=== PATIENT | male | born 1955 | race Caucasian/White ===

== ENCOUNTER 2018-01-01 14:22 | Inpatient (IN) ==
[2018-01-01] MEDS ORDERED: Temazepam 15 MG Capsule PO PRN (21:24)
[2018-01-01] MEDS: Sod Chloride 0.9% Inj 1,000 ML IV.CONT SCH (22:24)
[2018-01-01] MEDS: Thiamine Inj 500 MG in Sodium Chlor 0.9% Inj 250 ML IV.SIG SCH (22:24)
[2018-01-02] MEDS: Thiamine Inj 500 MG in Sodium Chlor 0.9% Inj 250 ML IV.SIG SCH ×3 (05:15→21:39)
[2018-01-02] MEDS: Acetaminophen 325 MG Tablet PO PRN ×2 (05:51→12:40)
[2018-01-02 06:17] LABS: Baso % (Auto) 0.1 % (0.0-2.0); Eos # (Auto) 0.2 th/mm3 (0.0-0.4); Eos % (Auto) 2.2 % (0.0-4.0); Hematocrit 40.4 % (39.0-51.0); Hemoglobin 13.9 gm/dL (13.0-17.0); Lymph # (Auto) 0.5 th/mm3 (1.0-4.8); Mean Corpuscular HGB Conc 34.4 % (32.0-36.0); Mean Corpuscular Hemoglobin 32.8 pg (27.0-34.0); Mean Corpuscular Volume 95.4 fL (80.0-100.0); Mean Platelet Volume 7.9 fL (7.0-11.0); Mono # (Auto) 0.4 th/mm3 (0.0-0.9); Neut # (Auto) 8.3 th/mm3 (1.8-7.7); Neut % (Auto) 88.7 % (16.0-70.0); Platelet Count 206 th/mm3 (150-450); Red Blood Count 4.23 mil/mm3 (4.50-5.90); Red Cell Distribution Width 11.7 % (11.6-17.2); White Blood Count 9.4 th/mm3 (4.0-11.0)
[2018-01-02 06:24] LABS: Chloride 109 meq/L (98-107); Potassium 3.5 meq/L (3.5-5.1); Sodium 141 meq/L (136-145)
[2018-01-02 06:28] LABS: Albumin 2.8 g/dL (3.4-5.0); Anion Gap 8 meq/L (5-15); Blood Urea Nitrogen 13 mg/dL (7-18); Carbon Dioxide 24.4 meq/L (21.0-32.0); Glucose,Random 119 mg/dL (74-106)
[2018-01-02 06:31] LABS: Alanine Aminotransferase 169 U/L (12-78); Aspartate Aminotransferase 121 U/L (15-37); Glomerular Filtration Rate 61 mL/min (>89)
[2018-01-02 06:32] LABS: Total Protein 6.9 g/dL (6.4-8.2)
[2018-01-02 06:33] LABS: Alkaline Phosphatase 173 U/L (45-117)
[2018-01-02] MEDS: Sod Chloride 0.9% Inj 1,000 ML IV.CONT SCH ×2 (08:13→18:37)
--- NOTE | 2018-01-02 11:04 | P.HP ---
History of Present Illness Service: Medicine Primary Care Physician: UNKNOWN Chief Complaint: dysuria, fever History of Present Illness: 62 y/o male presents to [place] [facility] with complaints of fevers up to 103 for 3 days. He states he had been poorly for the last week. Tuesday he started developing fevers of 103. He took several ibuprofen and aleve over the next several days with no improvment in his fevers. His only other complaint is burning on urination.No penile discharge. He has also had a frontal headache. No blurry vision, no neck pain. Today he has some nasal congestion, no sore throat. [employer]prox 2 weeks ago he cut his left hand against a fence and was placed on bactrim which he finished 2 days ago. No abdominal pain or diarrhea. He feels that he hasnt moved his bowels as regularly since the bactrim. No skin rash. In [place] his white count was 13.7 and his urine had bacteria and was postive for nitrites. His lfts were slightly elevated (ast 191, alt 177, alk phos 156) and ruq ultrasound was done that was negative for any acute process. - Diagnosis (1) UTI (urinary tract infection) (2) Sepsis (3) Elevated LFTs Inpatient Certification: I certify that the inpatient services were ordered in accordance with Medicare regulations governing the order. This includes certification that hospital inpatient services are reasonable and necessary and in the case of services not specified as inpatient-only under 42 CFR 419.22(n), that they are appropriately provided as inpatient services in accordance to with the 2-midnight benchmark under 43 CFR 412.3(e) Estimated Total Length of Stay (Days): 2 Plans for Post Hospital Care: Home Review of Systems All other systems reviewed negative except as [facility] - History History Provided By: Patient, Significant Other - Medical History Medical History: Medical History (Last Updated 01/02/18 @ 11:07 by Beatriz Wood MD) UTI (urinary tract infection) (Acute) Sepsis (Acute) Elevated LFTs (Acute) Gout Hypertension - Surgical History Surgical History: Surgical History (Last Reviewed 01/02/18 @ 10:54 by Beatriz Wood MD) No history of previous surgery - Tobacco History Second Hand Smoke Exposure: No Tobacco Use In Past 30 Days: No Smoking Status: Former smoker - Alcohol History How Often Do You Have a Drink Containing Alcohol: 4 or more times a week (4-6 beers a day,stopped 5 days ago) - Substance Use History Substance History: No History of Abuse - Immunization History Tetanus Immunization: >5 Years Hx Influenza Vaccine This Season: No Medications and Allergies Active Medications: Active Medications Acetaminophen (Tylenol) 650 mg PO Q4H PRN PRN Reason: Temp > 100.4 Last Admin: 01/02/18 05:51 Dose: 650 mg Sodium Chloride (Ns Inj) 1,000 mls @ 100 mls/hr IV.CONT .Q10H SUNITHA Last Admin: 01/02/18 08:13 Dose: 100 mls/hr Thiamine HCl 500 mg/ Sodium (Chloride) 255 mls @ 62.5 mls/hr IV.SIG Q8H SUNITHA Stop: 01/03/18 21:59 Last Admin: 01/02/18 05:15 Dose: 62.5 mls/hr Thiamine HCl 500 mg/ Sodium (Chloride) 505 mls @ 21 mls/hr IV.SIG Q24H SUNITHA Stop: 01/08/18 20:59 Piperacillin/Tazobactam/Dextrose (Zosyn 4.5 Gm Premix) 4.5 gm in 100 mls @ 200 mls/hr IV.SIG Q6H SUNITHA Ondansetron HCl (Zofran Inj) 4 mg IV.PUSH Q6H PRN PRN Reason: NAUSEA OR VOMITING Temazepam (Restoril) 15 mg PO HS PRN PRN Reason: INSOMNIA Allergies Allergy/AdvReac Type Severity Reaction Status Date / Time No Known Allergies Allergy Verified 01/01/18 14:24 Exam Vital signs: Vital Signs 01/01/18 20:15 01/02/18 00:00 01/02/18 04:00 Temperature 98.1 F 100.8 F H 99.1 F Pulse Rate 84 95 H 88 Respiratory Rate 20 20 20 Blood Pressure 134/81 123/72 117/65 Pulse Oximetry 97 96 97 01/02/18 08:00 Temperature 97.3 F L Pulse Rate 80 Respiratory Rate 18 Blood Pressure 117/64 Pulse Oximetry 95 Intake & Output 01/01/18 01/02/18 01/02/18 18:59 06:59 18:59 Intake Total 975 / 975 1000 / 1000 Balance 975 / 975 1000 / 1000 Weight 92.1 kg Intake: IV 255 / 255 1000 / 1000 NS Inj 1,000 ML @ 100 mls/hr IV 1000 / 1000 .CONT .Q10H SUNITHA Rx#:[id number] Thiamine Inj 500 MG In NS Inj 255 / 255 250 ML @ 62.5 mls/hr IV.SIG Q8H SUNITHA Rx#:[id number] Oral 720 / 720 Other: # Voids 1 Weight On Admission 91.6 kg - Constitutional no acute distress - Routine HEENT Exam Head: Present: normocephalic Eye: Present: EOMI ENT: Present: mucous membranes moist - Routine Neck Exam Present: supple - Routine Respiratory Exam Present: CTA bilaterally - Routine Cardiovascular Exam Present: RRR - Routine Abdominal Exam Present: soft, normoactive bowel sounds - Routine Extremities Exam Present: full ROM - Routine Skin Exam Present: wounds Comments: healing wound dorsum of left hand with eschar, some erythema, nontender not warm , tattoos - Routine Neurological Exam Present: alert, oriented X3 Results - Labs CBC & Chem 7: 01/02/18 05:50 01/02/18 05:50 Labs: Laboratory Results - last 24 hr 01/02/18 01/02/18 05:50 05:50 CBC w Diff Auto diff final WBC 9.4 RBC 4.23 L Hgb 13.9 Hct 40.4 MCV 95.4 MCH 32.8 MCHC 34.4 RDW 11.7 Plt Count 206 MPV 7.9 Neut % (Auto) 88.7 H Lymph % (Auto) 5.0 L [place] % (Auto) 4.0 Eos % (Auto) 2.2 Baso % (Auto) 0.1 Neut # (Auto) 8.3 H Lymph # (Auto) 0.5 L [place] # (Auto) 0.4 Eos # (Auto) 0.2 Baso # (Auto) 0.0 WBC Differential . Differential Comment . Sodium 141 Potassium 3.5 Chloride 109 H Carbon Dioxide 24.4 Anion Gap 8 BUN 13 Creatinine 1.20 Estimated GFR 61 L Random Glucose 119 H Calcium 8.0 L D Total Bilirubin 2.3 H Direct Bilirubin 1.7 H Indirect Bilirubin 0.6 AST 121 H ALT 169 H Alkaline Phosphatase 173 H Total Protein 6.9 D Albumin 2.8 L D - Imaging RUQ ultrasound done in [place] read as echogenic liver consistent with hepatic steatosis vs medical liver disease Caprini VTE Risk Assessment Caprini VTE Risk Assessment: Moderate/High Risk (score >= 2) Caprini Risk Assessment Model: Point Value = 1 Point Value = 2 Point Value = 3 Point Value = 5 Age 41-60 Minor surgery BMI > 25 kg/m2 Swollen legs Varicose veins or History of unexplained or recurrent spontaneous Oral contraceptives or hormone replacement Sepsis (< 1 month) Serious lung disease, including pneumonia (< 1 month) Abnormal pulmonary function Acute myocardial infarction Congestive heart failure (< 1 month) History of inflammatory bowel disease Medical patient at bed rest Age 61-74 Arthroscopic surgery Major open surgery (> 45 min) Laparoscopic surgery (> 45 min) Malignancy Confined to bed (> 72 hours) Immobilizing plaster cast Central venous access Age >= 75 History of VTE Family history of VTE Factor V Leiden Prothrombin [id number] Lupus anticoagulant Anticardiolipin antibodies Elevated serum homocysteine Heparin-induced thrombocytopenia Other congenital or acquired thrombophilia Stroke (< 1 month) Elective arthroplasty Hip, pelvis, or leg fracture Acute spinal cord injury (< 1 month) Prophylaxis Regimen: Total Risk Factor Score Risk Level Prophylaxis Regimen 0-1 Low Early ambulation 2 Moderate Order ONE of the following: *Sequential Compression Device (SCD) *Heparin 5000 units SQ BID 3-4 Higher Order ONE of the following medications: *Heparin 5000 units SQ TID *Enoxaparin/Lovenox 40 mg SQ daily (WT < 150 kg, CrCl > 30 mL/min) *Enoxaparin/Lovenox 30 mg SQ daily (WT < 150 kg, CrCl > 10-29 mL/min) *Enoxaparin/Lovenox 30 mg SQ BID (WT < 150 kg, CrCl > 30 mL/min) AND/OR *Sequential Compression Device (SCD) 5 or more Highest Order ONE of the following medications: *Heparin 5000 units SQ TID (Preferred with Epidurals) *Enoxaparin/Lovenox 40 mg SQ daily (WT < 150 kg, CrCl > 30 mL/min) *Enoxaparin/Lovenox 30 mg SQ daily (WT < 150 kg, CrCl > 10-29 mL/min) *Enoxaparin/Lovenox 30 mg SQ BID (WT < 150 kg, CrCl > 30 mL/min) AND *Sequential Compression Device (SCD) Assessment and Plan - Assessment (1) UTI (urinary tract infection) Code(s): N39.0 - Urinary tract infection, site not specified Status: Acute Onset Date: ~01/01/18 Plan: Patient has developed rather significant uti while on bactrim, On zosyn currently, follow urine cultures and blood cultures from [place] (2) Sepsis Code(s): A41.9 - Sepsis, unspecified organism Status: Acute Plan: lactic acid was 2.4 in [place] ER, along with fever, elevated white count cont anitbiotics, fluids and supportive care (3) Elevated LFTs Code(s): R94.5 - Abnormal results of liver function studies Status: Acute Plan: Ultrasound was negative for gallstones, may be multifactorial, recent alcohol use and what appears to be incresed nsaid use over the weekend, further evaluation pending trend. - Plan Discussed Condition With: patient and (1) UTI (urinary tract infection) Qualifiers: Encounter type: initial encounter (2) Sepsis Qualifiers: Sepsis type: sepsis due to unspecified organism Qualified Code(s): A41.9 - Sepsis, unspecified organism
[2018-01-02] MEDS: Piperacil/Tazo 4.5 GM Premix 4.5 GM/100 ML BAG IV.SIG SCH ×3 (11:18→23:16)
[2018-01-02] MEDS ORDERED: Ketorolac Inj 30 MG/ML (IVP) Vial IV.PUSH SCH (22:45)
[2018-01-03] MEDS: Piperacil/Tazo 4.5 GM Premix 4.5 GM/100 ML BAG IV.SIG SCH ×4 (06:19→23:03)
[2018-01-03] MEDS: Thiamine Inj 500 MG in Sodium Chlor 0.9% Inj 250 ML IV.SIG SCH ×2 (06:37→14:12)
[2018-01-03 06:46] LABS: Baso % (Auto) 0.2 % (0.0-2.0); Eos # (Auto) 0.2 th/mm3 (0.0-0.4); Eos % (Auto) 2.2 % (0.0-4.0); Hematocrit 37.8 % (39.0-51.0); Hemoglobin 13.2 gm/dL (13.0-17.0); Lymph # (Auto) 0.5 th/mm3 (1.0-4.8); Lymph % (Auto) 4.8 % (9.0-44.0); Mean Corpuscular Volume 94.2 fL (80.0-100.0); Mean Platelet Volume 7.6 fL (7.0-11.0); Mono # (Auto) 0.5 th/mm3 (0.0-0.9); Neut # (Auto) 9.1 th/mm3 (1.8-7.7); Neut % (Auto) 87.8 % (16.0-70.0); Platelet Count 222 th/mm3 (150-450); Red Blood Count 4.01 mil/mm3 (4.50-5.90); Red Cell Distribution Width 12.4 % (11.6-17.2); White Blood Count 10.3 th/mm3 (4.0-11.0)
[2018-01-03 06:51] LABS: Chloride 111 meq/L (98-107); Potassium 3.7 meq/L (3.5-5.1); Sodium 143 meq/L (136-145)
[2018-01-03 06:56] LABS: Albumin 2.4 g/dL (3.4-5.0); Anion Gap 11 meq/L (5-15); Blood Urea Nitrogen 11 mg/dL (7-18); Calcium 8.1 mg/dL (8.5-10.1); Carbon Dioxide 21.1 meq/L (21.0-32.0); Glucose,Random 95 mg/dL (74-106)
[2018-01-03 06:59] LABS: Alanine Aminotransferase 115 U/L (12-78); Aspartate Aminotransferase 64 U/L (15-37); Glomerular Filtration Rate 68 mL/min (>89)
[2018-01-03 07:01] LABS: Total Protein 6.7 g/dL (6.4-8.2)
[2018-01-03 07:02] LABS: Alkaline Phosphatase 272 U/L (45-117)
[2018-01-03] MEDS: Sod Chloride 0.9% Inj 1,000 ML IV.CONT SCH ×3 (08:23→18:01)
[2018-01-03 12:20] LABS: Hepatitis A IgM Antibody Nonreactive (Nonreactive); Hepatitits B Surface Antigen Nonreactive (Nonreactive)
--- NOTE | 2018-01-03 13:12 | P.PN ---
Subjective Interval history: head ache yesterday improved with low dose toradol and benedryl, eyes are itching and red, uses red eye solution at home every day, nasal congestion now with nonproductive cough, eating but decreased appetite, had bm this am, regular , generalized body ache, worried about left hand. states they doctored it at home themselves for a while before seeking medical attention and was quite swollen .Completed 10 days of bactrim 3 days ago. Physical Exam Vital signs: Vital Signs 01/02/18 15:43 01/02/18 20:00 01/03/18 00:00 Temperature 100.3 F H 100 F H 99.3 F Pulse Rate 89 89 86 Respiratory Rate 18 19 18 Blood Pressure 122/60 131/71 123/66 Pulse Oximetry 97 97 96 01/03/18 04:00 01/03/18 08:00 01/03/18 12:00 Temperature 99.2 F 97.8 F 99.9 F H Pulse Rate 86 90 Respiratory Rate 17 20 Blood Pressure 123/77 160/80 H Pulse Oximetry 98 95 Intake & Output 01/02/18 01/03/18 01/03/18 18:59 06:59 18:59 Intake Total 3395 / 3395 2090 / 2090 815 / 815 Output Total 500 / 500 400 / 400 Balance 3395 / 3395 1590 / 1590 415 / 415 Weight 94 kg Intake: IV 2455 / 2455 1610 / 1610 455 / 455 NS Inj 1,000 ML @ 100 mls/hr IV 2000 / 2000 1000 / 1000 .CONT .Q10H SUNITHA Rx#:[id number] Zosyn 4.5 GM Premix 4.5 gm In 100 / 100 200 / 200 200 / 200 100 ml @ 200 mls/hr IV.SIG Q6H SUNITHA Rx#:[id number] Thiamine Inj 500 MG In NS Inj 355 / 355 410 / 410 255 / 255 250 ML @ 62.5 mls/hr IV.SIG Q8H SUNITHA Rx#:[id number] Oral 940 / 940 480 / 480 360 / 360 Output: Urine 500 / 500 400 / 400 Other: # Voids 2 Date of Last Bowel Movement 01/03/18 # Bowel Movements 0 - Constitutional Comments: sitting in chair , ill appearing, uncomfortable - Routine HEENT Exam Head: Present: normocephalic Eye: Present: conjunctival icterus, scleral injection - Routine Neck Exam Present: supple - Routine Respiratory Exam Present: CTA bilaterally - Routine Cardiovascular Exam Present: RRR - Routine Abdominal Exam Present: soft, normoactive bowel sounds - Routine Skin Exam Present: wounds Comments: dorsum of left wrist eschar, appears more swollen today, some scar tissue formation, tender but not hot - Routine Neurological Exam Present: alert - Routine Psychiatric Exam Present: normal affect Results - Labs CBC & Chem 7: 01/03/18 06:25 01/03/18 06:25 Laboratory Results - last 24 hr 01/03/18 01/03/18 01/03/18 06:25 06:25 06:25 CBC w Diff Auto diff final WBC 10.3 RBC 4.01 L Hgb 13.2 Hct 37.8 L MCV 94.2 MCH 33.0 MCHC 35.0 RDW 12.4 Plt Count 222 MPV 7.6 Neut % (Auto) 87.8 H Lymph % (Auto) 4.8 L [place] % (Auto) 5.0 Eos % (Auto) 2.2 Baso % (Auto) 0.2 Neut # (Auto) 9.1 H Lymph # (Auto) 0.5 L [place] # (Auto) 0.5 Eos # (Auto) 0.2 Baso # (Auto) 0.0 WBC Differential . Differential Comment . Sodium 143 Potassium 3.7 Chloride 111 H Carbon Dioxide 21.1 Anion Gap 11 BUN 11 Creatinine 1.10 Estimated GFR 68 L Random Glucose 95 Calcium 8.1 L Total Bilirubin 3.3 H AST 64 H ALT 115 H Alkaline Phosphatase 272 H Total Protein 6.7 Albumin 2.4 L Hepatitis A IgM Ab Nonreactive Hep Bs Antigen Nonreactive Hep B Core IgM Ab Nonreactive Hep C IgG Ab Nonreactive Microbiology 01/01/18 23:25 Blood - Peripheral Aerobic Blood Culture - Preliminary No growth in 2 days 01/01/18 23:25 Blood - Peripheral Anaerobic Blood Culture - Preliminary No growth in 2 days 01/01/18 23:30 Blood - Peripheral Aerobic Blood Culture - Preliminary No growth in 2 days 01/01/18 23:30 Blood - Peripheral Anaerobic Blood Culture - Preliminary No growth in 2 days Assessment and Plan - Assessment (1) UTI (urinary tract infection) Code(s): A41.9 - Sepsis, unspecified organism Status: Acute Plan: lactic acid was 2.4 in [place] [facility], along with fever, elevated white count cont anitbiotics, fluids and supportive care, no clear source at this point (2) Elevated LFTs Code(s): R94.5 - Abnormal results of liver function studies Status: Acute Plan: Ultrasound was negative for gallstones, may be multifactorial, recent alcohol use and what appears to be increased nsaid use over the weekend, alk phos and bilirubin increasing ast, alt decreasing, hepatitis studies ordered , (3) UTI (urinary tract infection) Code(s): A41.9 - Sepsis, unspecified organism Status: Acute Plan: lactic acid was 2.4 in [place] [facility], along with fever, elevated white count cont anitbiotics, fluids and supportive care, no clear source at this point - Plan Discussed Condition With: patient and (1) UTI (urinary tract infection) Qualifiers: Sepsis type: sepsis due to unspecified organism Qualified Code(s): A41.9 - Sepsis, unspecified organism (3) UTI (urinary tract infection) Qualifiers: Sepsis type: sepsis due to unspecified organism Qualified Code(s): A41.9 - Sepsis, unspecified organism
[2018-01-03] MEDS: Acetaminophen 325 MG Tablet PO PRN (14:38)
--- NOTE | 2018-01-03 15:21 | XR ---
EXAM DATE: 01/03/2018 3:10 PM EDT AGE/SEX: 62 years / Male INDICATIONS: . Fever. CLINICAL DATA: This is the patient's initial encounter. Patient reports that signs and symptoms have been present for 1 day and indicates a pain score of 6/10. MEDICAL/SURGICAL HISTORY: Hypertension. UTI. Gout. None. COMPARISON: No prior exams available for comparison. FINDINGS: Frontal and lateral views of the chest demonstrate a normal-sized cardiac silhouette. There are abnor mal lower lung zone interstitial opacities bilaterally. No pleural effusion or pneumothorax is identi fied. The bones and soft tissues demonstrate no acute finding. CONCLUSION: Abnormal lower lung zone interstitial opacities bilaterally. No pleural effusion is present. Pulmonar y edema could give this appearance. Given the history of fever infection is also a consideration. Electronically signed by: Lico Ovalle MD 01/03/2018 3:19 PM EDT
--- NOTE | 2018-01-03 15:22 | XR ---
EXAM DATE: 01/03/2018 3:12 PM EDT AGE/SEX: 62 years / Male INDICATIONS: Left posterior hand wound. CLINICAL DATA: This is the patient's initial encounter. Patient reports that signs and symptoms have been present for 1 week and indicates a pain score of 7/10. MEDICAL/SURGICAL HISTORY: Hypertension. Gout. UTI. None. COMPARISON: No prior exams available for comparison. FINDINGS: 3 views of the left hand demonstrate no fracture or dislocation. There is joint space narrowing and o steophytes at the thumb metacarpophalangeal joint. Small subchondral cyst is present in the distal po le of the scaphoid. No osseous erosions are visualized. There is mild posterior hand soft tissue swel ling. No radiopaque foreign body is identified. CONCLUSION: Mild posterior hand soft tissue swelling. No radiopaque foreign body is identified and no acute osseo us abnormality is seen. Electronically signed by: Lico Ovalle MD 01/03/2018 3:21 PM EDT
--- NOTE | 2018-01-03 16:17 | P.CONGI ---
History of Present Illness Consult date: 01/03/18 Consult reason: Jaundice Chief complaint: UTI, sepsis History of Present Illness: This is 62 y/o male presents with fevers up to 103 for 3 days. He took several ibuprofen and Aleve with no improvement. He has been feeling poorly for few days. GI consulted for jaundice and elevated LFTs. Pt was seen initially at [place] ED. US done in [place] showed echogenic liver consistent with hepatic steatosis vs medical liver disease. LFTs on admission AST 191, ALT 177, alk phos 156, bili 2.3, today bili and alk phos seem to rise but rest of LFTs trending down. Pt denies previous hx of liver dz or family hx of liver dz. Pt was placed on Bactrim which he finished 2 days ago for cut on the hand. He admits to alcohol intake 2-6 a day. His only other complaint is burning on urination and fever. He also endorses dark urine. He denies nausea, vomiting, abd pain, melena or hematochezia. He has been constipated but had BM today. <Gregoria Polk - Last Filed: 01/03/18 16:02> Review of Systems All other systems reviewed negative except as stated in HPI <Gregoria Polk - Last Filed: 01/03/18 16:02> PMFSH - History History Provided By: Patient, Significant Other - Medical History Medical History: Medical History (Last Updated 01/02/18 @ 11:07 by Beatriz Wood MD) UTI (urinary tract infection) (Acute) Onset Date: ~01/01/18 Elevated LFTs (Acute) Onset Date: ~01/01/18 Gout Hypertension - Surgical History Surgical History: Surgical History (Last Reviewed 01/02/18 @ 10:54 by Beatriz Wood MD) No history of previous surgery - Tobacco History Second Hand Smoke Exposure: No Tobacco Use In Past 30 Days: No Smoking Status: Former smoker - Alcohol History How Often Do You Have a Drink Containing Alcohol: 4 or more times a week (4-6 beers a day,stopped 5 days ago) - Substance Use History Substance History: No History of Abuse - Immunization History Tetanus Immunization: >5 Years Hx Influenza Vaccine This Season: No <Gregoria Polk - Last Filed: 01/03/18 16:02> - Medical History Medical History: Medical History (Last Updated 01/02/18 @ 11:07 by Beatriz Wood MD) UTI (urinary tract infection) (Acute) Onset Date: ~01/01/18 Elevated LFTs (Acute) Onset Date: ~01/01/18 Gout Hypertension - Surgical History Surgical History: Surgical History (Last Reviewed 01/02/18 @ 10:54 by Beatriz Wood MD) No history of previous surgery <Denis Collins - Last Filed: 01/03/18 17:10> Medications and Allergies Active Medications: Active Medications Acetaminophen (Tylenol) 650 mg PO Q4H PRN PRN Reason: Temp > 100.4 Last Admin: 01/03/18 14:38 Dose: 650 mg Al Hydroxide/Mg Hydroxide (Milk Of Magnmarycarmen Liq) 30 ml PO Q24H PRN PRN Reason: CONSTIPATION Last Admin: 01/03/18 08:40 Dose: 30 ml Sodium Chloride (Ns Inj) 1,000 mls @ 100 mls/hr IV.CONT .Q10H SUNITHA Last Admin: 01/03/18 13:56 Dose: Not Given Thiamine HCl 500 mg/ Sodium (Chloride) 255 mls @ 62.5 mls/hr IV.SIG Q8H SUNITHA Stop: 01/03/18 21:59 Last Admin: 01/03/18 14:12 Dose: 62.5 mls/hr Thiamine HCl 500 mg/ Sodium (Chloride) 505 mls @ 21 mls/hr IV.SIG Q24H SUNITHA Stop: 01/08/18 20:59 Piperacillin/Tazobactam/Dextrose (Zosyn 4.5 Gm Premix) 4.5 gm in 100 mls @ 200 mls/hr IV.SIG Q6H SUNITHA Last Infusion: 01/03/18 11:29 Dose: Infused Ondansetron HCl (Zofran Inj) 4 mg IV.PUSH Q6H PRN PRN Reason: NAUSEA OR VOMITING Temazepam (Restoril) 15 mg PO HS PRN PRN Reason: INSOMNIA <Gregoria Polk - Last Filed: 01/03/18 16:02> Active Medications: Active Medications Acetaminophen (Tylenol) 650 mg PO Q4H PRN PRN Reason: Temp > 100.4 Last Admin: 01/03/18 14:38 Dose: 650 mg Al Hydroxide/Mg Hydroxide (Milk Of Magnmarycarmen Liq) 30 ml PO Q24H PRN PRN Reason: CONSTIPATION Last Admin: 01/03/18 08:40 Dose: 30 ml Sodium Chloride (Ns Inj) 1,000 mls @ 100 mls/hr IV.CONT .Q10H SUNITHA Last Admin: 01/03/18 13:56 Dose: Not Given Thiamine HCl 500 mg/ Sodium (Chloride) 255 mls @ 62.5 mls/hr IV.SIG Q8H SUNITHA Stop: 01/03/18 21:59 Last Admin: 01/03/18 14:12 Dose: 62.5 mls/hr Thiamine HCl 500 mg/ Sodium (Chloride) 505 mls @ 21 mls/hr IV.SIG Q24H SUNITHA Stop: 01/08/18 20:59 Piperacillin/Tazobactam/Dextrose (Zosyn 4.5 Gm Premix) 4.5 gm in 100 mls @ 200 mls/hr IV.SIG Q6H SUNITHA Last Infusion: 01/03/18 11:29 Dose: Infused Ondansetron HCl (Zofran Inj) 4 mg IV.PUSH Q6H PRN PRN Reason: NAUSEA OR VOMITING Temazepam (Restoril) 15 mg PO HS PRN PRN Reason: INSOMNIA <Denis Collins - Last Filed: 01/03/18 17:10> Allergies Allergy/AdvReac Type Severity Reaction Status Date / Time No Known Allergies Allergy Verified 01/01/18 14:24 Exam Vital signs: Vital Signs 01/02/18 20:00 01/03/18 00:00 01/03/18 04:00 Temperature 100 F H 99.3 F 99.2 F Pulse Rate 89 86 Respiratory Rate 19 18 Blood Pressure 131/71 123/66 Pulse Oximetry 97 96 01/03/18 08:00 01/03/18 12:00 01/03/18 14:36 Temperature 97.8 F 99.9 F H 100.9 F H Pulse Rate 86 90 Respiratory Rate 17 20 Blood Pressure 123/77 160/80 H Pulse Oximetry 98 95 Intake & Output 01/02/18 01/03/18 01/03/18 18:59 06:59 18:59 Intake Total 3395 / 3395 2090 / 2090 815 / 815 Output Total 500 / 500 400 / 400 Balance 3395 / 3395 1590 / 1590 415 / 415 Weight 94 kg Intake: IV 2455 / 2455 1610 / 1610 455 / 455 NS Inj 1,000 ML @ 100 mls/hr IV 2000 / 2000 1000 / 1000 .CONT .Q10H SUNITHA Rx#:[id number] Zosyn 4.5 GM Premix 4.5 gm In 100 / 100 200 / 200 200 / 200 100 ml @ 200 mls/hr IV.SIG Q6H SUNITHA Rx#:[id number] Thiamine Inj 500 MG In NS Inj 355 / 355 410 / 410 255 / 255 250 ML @ 62.5 mls/hr IV.SIG Q8H SUNITHA Rx#:[id number] Oral 940 / 940 480 / 480 360 / 360 Output: Urine 500 / 500 400 / 400 Other: # Voids 2 Date of Last Bowel Movement 01/03/18 # Bowel Movements 0 - Constitutional no acute distress - Routine HEENT Exam Head: Present: normocephalic - Routine Neck Exam Present: supple - Routine Respiratory Exam Present: CTA bilaterally - Routine Cardiovascular Exam Present: RRR - Routine Abdominal Exam Present: soft, normoactive bowel sounds. Absent: tenderness - Routine Extremities Exam Absent: cyanosis, clubbing - Routine Skin Exam Present: intact, dry, jaundice - Routine Neurological Exam Present: alert, oriented X3 <Gregoria Polk - Last Filed: 01/03/18 16:02> Vital signs: Vital Signs 01/02/18 20:00 01/03/18 00:00 01/03/18 04:00 Temperature 100 F H 99.3 F 99.2 F Pulse Rate 89 86 Respiratory Rate 19 18 Blood Pressure 131/71 123/66 Pulse Oximetry 97 96 01/03/18 08:00 01/03/18 12:00 01/03/18 14:36 Temperature 97.8 F 99.9 F H 100.9 F H Pulse Rate 86 90 Respiratory Rate 17 20 Blood Pressure 123/77 160/80 H Pulse Oximetry 98 95 Intake & Output 01/02/18 01/03/18 01/03/18 18:59 06:59 18:59 Intake Total 3395 / 3395 2090 / 2090 815 / 815 Output Total 500 / 500 400 / 400 Balance 3395 / 3395 1590 / 1590 415 / 415 Weight 94 kg Intake: IV 2455 / 2455 1610 / 1610 455 / 455 NS Inj 1,000 ML @ 100 mls/hr IV 2000 / 2000 1000 / 1000 .CONT .Q10H SUNITHA Rx#:[id number] Zosyn 4.5 GM Premix 4.5 gm In 100 / 100 200 / 200 200 / 200 100 ml @ 200 mls/hr IV.SIG Q6H SUNITHA Rx#:[id number] Thiamine Inj 500 MG In NS Inj 355 / 355 410 / 410 255 / 255 250 ML @ 62.5 mls/hr IV.SIG Q8H SUNITHA Rx#:[id number] Oral 940 / 940 480 / 480 360 / 360 Output: Urine 500 / 500 400 / 400 Other: # Voids 2 Date of Last Bowel Movement 01/03/18 # Bowel Movements 0 <Denis Collins - Last Filed: 01/03/18 17:10> Results - Labs CBC & Chem 7: 01/03/18 06:25 01/03/18 06:25 Labs: Laboratory Results - last 24 hr 01/03/18 01/03/18 01/03/18 06:25 06:25 06:25 CBC w Diff Auto diff final WBC 10.3 RBC 4.01 L Hgb 13.2 Hct 37.8 L MCV 94.2 MCH 33.0 MCHC 35.0 RDW 12.4 Plt Count 222 MPV 7.6 Neut % (Auto) 87.8 H Lymph % (Auto) 4.8 L Saline % (Auto) 5.0 Eos % (Auto) 2.2 Baso % (Auto) 0.2 Neut # (Auto) 9.1 H Lymph # (Auto) 0.5 L Saline # (Auto) 0.5 Eos # (Auto) 0.2 Baso # (Auto) 0.0 WBC Differential . Differential Comment . Sodium 143 Potassium 3.7 Chloride 111 H Carbon Dioxide 21.1 Anion Gap 11 BUN 11 Creatinine 1.10 Estimated GFR 68 L Random Glucose 95 Calcium 8.1 L Total Bilirubin 3.3 H AST 64 H ALT 115 H Alkaline Phosphatase 272 H Total Protein 6.7 Albumin 2.4 L Hepatitis A IgM Ab Nonreactive Hep Bs Antigen Nonreactive Hep Bs Antibody Hep B Core IgM Ab Nonreactive Hep C IgG Ab Nonreactive 01/03/18 06:25 CBC w Diff WBC RBC Hgb Hct MCV MCH MCHC RDW Plt Count MPV Neut % (Auto) Lymph % (Auto) Saline % (Auto) Eos % (Auto) Baso % (Auto) Neut # (Auto) Lymph # (Auto) Saline # (Auto) Eos # (Auto) Baso # (Auto) WBC Differential Differential Comment Sodium Potassium Chloride Carbon Dioxide Anion Gap BUN Creatinine Estimated GFR Random Glucose Calcium Total Bilirubin AST ALT Alkaline Phosphatase Total Protein Albumin Hepatitis A IgM Ab Cancelled Hep Bs Antigen Cancelled Hep Bs Antibody Less than 3.1 Hep B Core IgM Ab Cancelled Hep C IgG Ab - Imaging Impressions Chest X-Ray 01/03/18 00:00 CONCLUSION: Abnormal lower lung zone interstitial opacities bilaterally. No pleural effusion is present. Pulmonary edema could give this appearance. Given the history of fever infection is also a consideration. Hand X-Ray 01/03/18 00:00 CONCLUSION: Mild posterior hand soft tissue swelling. No radiopaque foreign body is identified and no acute osseous abnormality is seen. <Gregoria Polk - Last Filed: 01/03/18 16:02> - Labs CBC & Chem 7: 01/03/18 06:25 01/03/18 06:25 Labs: Laboratory Results - last 24 hr 01/03/18 01/03/18 01/03/18 06:25 06:25 06:25 CBC w Diff Auto diff final WBC 10.3 RBC 4.01 L Hgb 13.2 Hct 37.8 L MCV 94.2 MCH 33.0 MCHC 35.0 RDW 12.4 Plt Count 222 MPV 7.6 Neut % (Auto) 87.8 H Lymph % (Auto) 4.8 L Saline % (Auto) 5.0 Eos % (Auto) 2.2 Baso % (Auto) 0.2 Neut # (Auto) 9.1 H Lymph # (Auto) 0.5 L Saline # (Auto) 0.5 Eos # (Auto) 0.2 Baso # (Auto) 0.0 WBC Differential . Differential Comment . Sodium 143 Potassium 3.7 Chloride 111 H Carbon Dioxide 21.1 Anion Gap 11 BUN 11 Creatinine 1.10 Estimated GFR 68 L Random Glucose 95 Calcium 8.1 L Total Bilirubin 3.3 H AST 64 H ALT 115 H Alkaline Phosphatase 272 H Total Protein 6.7 Albumin 2.4 L Hepatitis A IgM Ab Nonreactive Hep Bs Antigen Nonreactive Hep Bs Antibody Hep B Core IgM Ab Nonreactive Hep C IgG Ab Nonreactive 01/03/18 06:25 CBC w Diff WBC RBC Hgb Hct MCV MCH MCHC RDW Plt Count MPV Neut % (Auto) Lymph % (Auto) Saline % (Auto) Eos % (Auto) Baso % (Auto) Neut # (Auto) Lymph # (Auto) Saline # (Auto) Eos # (Auto) Baso # (Auto) WBC Differential Differential Comment Sodium Potassium Chloride Carbon Dioxide Anion Gap BUN Creatinine Estimated GFR Random Glucose Calcium Total Bilirubin AST ALT Alkaline Phosphatase Total Protein Albumin Hepatitis A IgM Ab Cancelled Hep Bs Antigen Cancelled Hep Bs Antibody Less than 3.1 Hep B Core IgM Ab Cancelled Hep C IgG Ab - Imaging Impressions Chest X-Ray 01/03/18 00:00 CONCLUSION: Abnormal lower lung zone interstitial opacities bilaterally. No pleural effusion is present. Pulmonary edema could give this appearance. Given the history of fever infection is also a consideration. Hand X-Ray 01/03/18 00:00 CONCLUSION: Mild posterior hand soft tissue swelling. No radiopaque foreign body is identified and no acute osseous abnormality is seen. <Denis Collins - Last Filed: 01/03/18 17:10> Assessment and Plan - Plan - Jaundice/ elevated LFTs in obstructive pattern- Possibly alcohol, abx induced or other etiology LFTs on admission AST 191, ALT 177, alk phos 156, bili 2.3, today bili and alk phos seem to rise but rest of LFTs trending down. US done in [place] showed echogenic liver consistent with hepatic steatosis vs medical liver disease. Hepatitis panel negative. Pt denies previous hx of liver dz or family hx of liver dz. Pt was placed on Bactrim which he finished 2 days ago for cut on the hand. He admits to alcohol intake 2-6 a day. His only other complaint is burning on urination and fever. He also endorses dark urine. He denies nausea, vomiting, abd pain, melena or hematochezia. - UTI- on abx - Fever- WBC wnl, on abx, blood cx negative so far, possibly due to Uti, ? cholangitis Plan: - RODDY - MRCP to r/o biliary etiology - Immunology - Monitor labs - Alcohol cessation - Supportive care - Pt seen and examined by Dr. Collins and myself and this note is written on his behalf <Gregoria Polk - Last Filed: 01/03/18 16:02> - Plan Seen and examined with [facility], drinks upto 6 beers/day but no previous h/o liver disease reported. Check MRCP. Monitor labs , if LFTs worsening add solumederol. pt.. advised against ETOH use. Dr Renee to follow. Thank you - Attending Attestation The exam, history, and the medical decision-making described in the above note were completed with the assistance of the mid-level provider. I reviewed and agree with the findings presented. I attest that I had a [id number] encounter with the patient on the same day, and personally performed and documented my assessment and findings in the medical record. <Denis Collins - Last Filed: 01/03/18 17:10>
[2018-01-03] MEDS ORDERED: Thiamine Inj 500 MG in Sodium Chlor 0.9% Inj 500 ML IV.SIG SCH (21:00)
[2018-01-03 21:19] LABS: % Iron Saturation 9.6 % (20-50)
[2018-01-04] MEDS: Acetaminophen 325 MG Tablet PO PRN ×2 (00:06→12:33)
[2018-01-04] MEDS: Sod Chloride 0.9% Inj 1,000 ML IV.CONT SCH ×2 (00:42→08:35)
[2018-01-04] MEDS: Piperacil/Tazo 4.5 GM Premix 4.5 GM/100 ML BAG IV.SIG SCH ×2 (04:45→10:03)
[2018-01-04 06:54] LABS: Baso % (Auto) 0.3 % (0.0-2.0); Eos # (Auto) 0.1 th/mm3 (0.0-0.4); Eos % (Auto) 0.8 % (0.0-4.0); Hematocrit 37.1 % (39.0-51.0); Hemoglobin 12.8 gm/dL (13.0-17.0); Lymph # (Auto) 1.1 th/mm3 (1.0-4.8); Lymph % (Auto) 7.9 % (9.0-44.0); Mean Corpuscular HGB Conc 34.5 % (32.0-36.0); Mean Corpuscular Hemoglobin 32.6 pg (27.0-34.0); Mean Corpuscular Volume 94.4 fL (80.0-100.0); Mean Platelet Volume 7.8 fL (7.0-11.0); Mono # (Auto) 0.7 th/mm3 (0.0-0.9); Mono % (Auto) 5.5 % (0.0-8.0); Neut # (Auto) 11.4 th/mm3 (1.8-7.7); Neut % (Auto) 85.5 % (16.0-70.0); Platelet Count 303 th/mm3 (150-450); Red Blood Count 3.93 mil/mm3 (4.50-5.90); White Blood Count 13.3 th/mm3 (4.0-11.0)
[2018-01-04 07:23] LABS: Chloride 110 meq/L (98-107); Potassium 3.2 meq/L (3.5-5.1); Sodium 141 meq/L (136-145)
[2018-01-04 07:27] LABS: Albumin 2.4 g/dL (3.4-5.0); Anion Gap 9 meq/L (5-15); Carbon Dioxide 21.6 meq/L (21.0-32.0)
[2018-01-04 07:28] LABS: Blood Urea Nitrogen 9 mg/dL (7-18); Glucose,Random 113 mg/dL (74-106)
[2018-01-04 07:31] LABS: Alanine Aminotransferase 97 U/L (12-78); Aspartate Aminotransferase 55 U/L (15-37); Glomerular Filtration Rate 68 mL/min (>89)
[2018-01-04 07:32] LABS: Total Protein 6.8 g/dL (6.4-8.2)
[2018-01-04 07:33] LABS: Alkaline Phosphatase 344 U/L (45-117)
--- NOTE | 2018-01-04 10:36 | P.PN ---
Subjective Interval history: Patient went downstairs for mrcp and developed left sided chest pain and sob when he lay back. He states yesterday when he stated using IS started feeling some chest discomfprt as he took a deep breath. The pain is worse when he sits but feels better if he stands and leans against the wall. States similar to when he had pleurisy many years ago and actually passed out from the pain . He states at that time the pain wrapped around his rib cage to his back. The pain is worse on inspiration. His left hand is bothering him more and he notes blisters on both hands now. Physical Exam Vital signs: Vital Signs 01/03/18 12:00 01/03/18 14:36 01/03/18 17:27 Temperature 99.9 F H 100.9 F H 98.7 F Pulse Rate 90 88 Respiratory Rate 20 19 Blood Pressure 160/80 H 137/74 Pulse Oximetry 95 96 01/03/18 20:00 01/04/18 00:00 01/04/18 08:00 Temperature 97.9 F 100.7 F H 97.3 F L Pulse Rate 88 93 H 86 Respiratory Rate 20 20 19 Blood Pressure 122/73 128/73 125/51 L Pulse Oximetry 98 95 98 Intake & Output 01/03/18 01/04/18 01/04/18 18:59 06:59 18:59 Intake Total 2310 / 2310 1665 / 1665 1000 / 1000 Output Total 600 / 600 Balance 1710 / 1710 1665 / 1665 1000 / 1000 Weight 96.2 kg Intake: IV 1710 / 1710 1300 / 1300 1000 / 1000 NS Inj 1,000 ML @ 100 mls/hr IV 1000 / 1000 1000 / 1000 1000 / 1000 .CONT .Q10H SUNITHA Rx#:[id number] Zosyn 4.5 GM Premix 4.5 gm In 200 / 200 300 / 300 100 ml @ 200 mls/hr IV.SIG Q6H SUNITHA Rx#:[id number] Thiamine Inj 500 MG In NS Inj 510 / 510 250 ML @ 62.5 mls/hr IV.SIG Q8H SUNITHA Rx#:[id number] Oral 600 / 600 365 / 365 Output: Urine 600 / 600 Other: # Voids 2 Date of Last Bowel Movement 01/03/18 - Constitutional moderate distress - Routine HEENT Exam Head: Present: normocephalic Eye: Present: conjunctival icterus - Routine Neck Exam Present: supple - Detailed Chest Wall Exam Comments: tender to palpation ant chest wall cece, parasternal - Routine Respiratory Exam Present: decreased breath sounds Comments: at the bases - Routine Cardiovascular Exam Present: RRR - Routine Abdominal Exam Present: soft - Routine Skin Exam Present: lesions, wounds Comments: papules both hands along fingers, wound splitting serosanguinous drainage - Routine Neurological Exam Present: alert, oriented X3 Results - Labs CBC & Chem 7: 01/04/18 06:30 01/04/18 06:30 Laboratory Results - last 24 hr 01/03/18 01/03/18 01/03/18 06:25 06:25 06:25 CBC w Diff WBC RBC Hgb Hct MCV MCH MCHC RDW Plt Count MPV Neut % (Auto) Lymph % (Auto) [place] % (Auto) Eos % (Auto) Baso % (Auto) Neut # (Auto) Lymph # (Auto) [place] # (Auto) Eos # (Auto) Baso # (Auto) WBC Differential Differential Comment Sodium Potassium Chloride Carbon Dioxide Anion Gap BUN Creatinine Estimated GFR Random Glucose Calcium Iron 19 L TIBC 199 L % Saturation 9.6 L Ferritin 987 H Total Bilirubin AST ALT Alkaline Phosphatase Total Protein Albumin Lipase 86 Hepatitis A IgM Ab Nonreactive Cancelled Hep Bs Antigen Nonreactive Cancelled Hep Bs Antibody Less than 3.1 Hep B Core IgM Ab Nonreactive Cancelled Hep C IgG Ab Nonreactive 01/04/18 01/04/18 06:30 06:30 CBC w Diff Auto diff final WBC 13.3 H RBC 3.93 L Hgb 12.8 L Hct 37.1 L MCV 94.4 MCH 32.6 MCHC 34.5 RDW 12.0 Plt Count 303 D MPV 7.8 Neut % (Auto) 85.5 H Lymph % (Auto) 7.9 L [place] % (Auto) 5.5 Eos % (Auto) 0.8 Baso % (Auto) 0.3 Neut # (Auto) 11.4 H Lymph # (Auto) 1.1 [place] # (Auto) 0.7 Eos # (Auto) 0.1 Baso # (Auto) 0.0 WBC Differential . Differential Comment . Sodium 141 Potassium 3.2 L Chloride 110 H Carbon Dioxide 21.6 Anion Gap 9 BUN 9 Creatinine 1.10 Estimated GFR 68 L Random Glucose 113 H Calcium 8.0 L Iron TIBC % Saturation Ferritin Total Bilirubin 4.1 H AST 55 H ALT 97 H Alkaline Phosphatase 344 H Total Protein 6.8 Albumin 2.4 L Lipase Hepatitis A IgM Ab Hep Bs Antigen Hep Bs Antibody Hep B Core IgM Ab Hep C IgG Ab Microbiology 01/01/18 23:25 Blood - Peripheral Aerobic Blood Culture - Preliminary No growth in 2 days 01/01/18 23:25 Blood - Peripheral Anaerobic Blood Culture - Preliminary No growth in 2 days 01/01/18 23:30 Blood - Peripheral Aerobic Blood Culture - Preliminary No growth in 2 days 01/01/18 23:30 Blood - Peripheral Anaerobic Blood Culture - Preliminary No growth in 2 days - Imaging Impressions Chest X-Ray 01/03/18 00:00 CONCLUSION: Abnormal lower lung zone interstitial opacities bilaterally. No pleural effusion is present. Pulmonary edema could give this appearance. Given the history of fever infection is also a consideration. Hand X-Ray 01/03/18 00:00 CONCLUSION: Mild posterior hand soft tissue swelling. No radiopaque foreign body is identified and no acute osseous abnormality is seen. Assessment and Plan - Assessment (1) UTI (urinary tract infection) Code(s): A41.9 - Sepsis, unspecified organism Status: Acute Plan: lactic acid was 2.4 in [place] [facility], along with fever, elevated white count cont anitbiotics, fluids and supportive care, no clear source at this point (2) Chest pain Code(s): R94.5 - Abnormal results of liver function studies Status: Resolved Plan: Xray ordered , ekg ordered and troponin. Patient has had pleurisy in the past and this is very similar to prior presentation. Toponin elevated to 1.48, given nitro asa with no change, spoke to Dr Carroll and will transfer to [facility] [place], furosemide and potassium given for possible volume overload. (3) Elevated LFTs Code(s): R94.5 - Abnormal results of liver function studies Status: Acute Plan: mrcp today Ultrasound was negative for gallstones, may be multifactorial, recent alcohol use and what appears to be increased nsaid use over the weekend, alk phos and bilirubin increasing ast, alt decreasing, hepatitis studies ordered , seen by gi who ordered mrcp unfortunately developed chest pain and sob and unable to lie flat, discussed with Dr Lima that sometimes this picture can be seen with allergic reaction to bactrim (2) Chest pain Qualifiers: Chest pain type: chest pain due to myocardial ischemia
--- NOTE | 2018-01-04 10:53 | XR ---
EXAM DATE: 01/04/2018 10:48 AM EDT AGE/SEX: 62 years / Male INDICATIONS: . Chest pain. Painful inspiration. CLINICAL DATA: This is the patient's subsequent encounter. Patient reports that signs and symptoms h ave been present for 1 day and indicates a pain score of 10/10. MEDICAL/SURGICAL HISTORY: . Hypertension. UTI. Gout. None. COMPARISON: [facility], CHEST 2V PA&LAT, 01/03/2018. . FINDINGS: Persistent bibasilar infiltrates and small effusions with slight interval worsening from yesterday's exam. Cardiac contours are grossly stable. Thoracic skeleton is stable and intact. CONCLUSION: Slight interval worsening in aeration. Electronically signed by: Lico Hendricks MD 01/04/2018 10:51 AM EDT
[2018-01-04] MEDS ORDERED: Aspirin 325 MG Tablet PO ONE (12:00)
[2018-01-04] MEDS ORDERED: Heparin 10,000 UNITS/10 ML Vial (for IV use) IV.PUSH STA (12:39)
[2018-01-04] MEDS ORDERED: Heparin Drip 25,000 UNIT/250 ML BAG IV.CONT PRN (12:39)
[2018-01-04 12:50] LABS: Hematocrit 41.3 % (39.0-51.0); Hemoglobin 14.3 gm/dL (13.0-17.0); Mean Corpuscular HGB Conc 34.5 % (32.0-36.0); Mean Corpuscular Hemoglobin 32.7 pg (27.0-34.0); Mean Corpuscular Volume 94.8 fL (80.0-100.0); Mean Platelet Volume 7.6 fL (7.0-11.0); Platelet Count 334 th/mm3 (150-450); Red Blood Count 4.36 mil/mm3 (4.50-5.90); Red Cell Distribution Width 12.1 % (11.6-17.2)
[2018-01-04 12:59] LABS: Potassium 3.3 meq/L (3.5-5.1)
[2018-01-04 13:02] LABS: Calcium 8.6 mg/dL (8.5-10.1)
[2018-01-04 13:03] LABS: Activated Partial Thrombo Time 28.2 sec (24.3-30.1); Carbon Dioxide 23.2 meq/L (21.0-32.0); Magnesium 2.4 mg/dL (1.5-2.5)
[2018-01-04] MEDS: Morphine Inj 4 MG/ML Vial IV.PUSH PRN ×2 (13:11→17:28)
[2018-01-04 13:28] LABS: Troponin I 1.43 ng/mL (0.02-0.05)
[2018-01-04 18:06] LABS: Chol/HDL Ratio 11.85 Ratio; HDL Cholesterol 10.8 mg/dL (40.0-60.0)
--- NOTE | 2018-01-04 18:12 | MB ---
cc: Joseluis Carroll MD DATE: 01/04/2018 INDICATION: Chest pain. HISTORY OF PRESENT ILLNESS: This is a very nice 62-year-old gentleman with a history of gout and hypertension, who presented to the emergency department over in [place] with symptoms of fever. Over the course of the past 3-4 days, he also had progressive shortness of breath. About 2 weeks prior, it seems like he had cut his left hand on a fence. He was placed on Bactrim, which he finished just a few days ago. He has had progressive shortness of breath since then. He was over at [place] and was seen by gastroenterology secondary to elevated liver function tests. Earlier today, he developed chest pain. He describes it more as a pleuritic type pain, worse with movement or deep inspiration. His white count has been pretty stable at about 14,000. His troponin was mildly elevated at 1.48 on the 01/04/2018, was called by Dr. Esquivel to evaluate the patient secondary to elevated troponin, now with chest pain symptoms. The symptoms were not relieved by nitroglycerin. He also states that in an attempt to have an MRCP developed acute onset of shortness of breath lying flat. PAST MEDICAL HISTORY: As mentioned above, hypertension, gout. SOCIAL HISTORY: Former smoker. Denies any drug or alcohol use. FAMILY HISTORY: Denies any family history of early coronary artery or sudden cardiac . SOCIAL HISTORY: Reports to drink about 4-6 beers a week. REVIEW OF SYSTEMS: A 12-point review of systems was performed, negative unless otherwise noted in the history of present illness. MEDICATIONS: See medication reconciliation. PHYSICAL EXAMINATION: VITAL SIGNS: Temperature is 100.6, pulse is 93, blood pressure 149/78 mmHg. GENERAL: Alert and oriented x3, in minimal distress. HEENT: Shows pupils reactive to light and accommodation. Extraocular movements are intact. NECK: No elevation of jugular venous distention. No thyromegaly. No lymphadenopathy. No carotid bruits. LUNGS: Clear to auscultation bilaterally with bibasilar crackles through about 1/3 of both lung garnica at the base. CARDIOVASCULAR: Regular, slightly tachycardic, 2/6 holosystolic murmur at the left sternal border without significant radiation. No rubs or gallops. ABDOMEN: Nontender, nondistended with good bowel sounds. No hepatosplenomegaly. EXTREMITIES: Show no clubbing, cyanosis or edema. There are noted to be macular small nodules on both his palmar hands and also on his back. They are painless. There also appears to maybe be a splinter hemorrhage in the left second metatarsal. LABORATORY DATA: Sodium 141, potassium 3.3, BUN is 10, creatinine is 1.0. Troponin is 1.48 at its peak, AST 55, ALT is 97, alkaline phosphatase 344. Coags 1.0. CBC 14, hemoglobin 14.3, platelet count 334. Electrocardiogram shows sinus rhythm. No significant ischemic changes. ASSESSMENT AND PLAN: 1. Atypical chest pain. 2. Elevated cardiac biomarkers. 3. Elevated liver function tests. 4. Congestive heart failure. 5. Murmur. PLAN: We will see if we can put the entire case together. His symptoms for chest pain sound somewhat atypical. His D-dimer is elevated, so is his troponin, but neither of which sound terribly conclusive for his presentation. He definitely has congestive heart failure type symptoms with bilateral edema on exam and x-ray. He has already received some diuretic. We will administer more diuretics to see if we can get his breathing improved. He is on a heparin drip, but I do not feel there is any immediate urgency to cardiac catheterization. My big concern would be for infected endocarditis, especially given what appears to be possible [place] lesions in addition of splinter hemorrhage and new murmur with CHF in the setting of fever and chills over the course of his recent infection with the left hand. I am going to ask the time clerk to come by to do a stat echo let us see exactly what the valves look like to make a determination of clinically what we need to do next. He has a CTA ordered of the chest. If the echocardiogram is unremarkable, then we will proceed with a CTA, although clinical suspicion for pulmonary embolism is low. We will likely for now medically manage his elevated troponin until we get a better handle on exactly what is going on, without electrocardiographic changes. This does not appear to be a thrombotic mediated cardiac event. Joseluis Carroll MD SHEL[facility]/ct , 04:22 PM , 04:36 PM
--- NOTE | 2018-01-05 00:44 | CT ---
EXAM DATE: 01/05/2018 12:30 AM EDT AGE/SEX: 62 years / Male INDICATIONS: Chest pain, elevated d-dimer. CLINICAL DATA: This is the patient's initial encounter. Patient reports that signs and symptoms have been present for 1 day and indicates a pain score of 4/10. MEDICAL/SURGICAL HISTORY: Hypertension. None. RADIATION DOSE: 20.45 CTDI (mGy) COMPARISON: No prior exams available for comparison. TECHNIQUE: Volumetric scanning was performed using a multi-row detector CT scanner during bolus infu lm of 72 ml Omnipaque 350 (iohexol) nonionic water-soluble contrast as a single exam dose. The kayce a was post processed with a variety of visualization algorithms including full volume maximum intensi ty projection and sliding thin slab reformation. Using automated exposure control and adjustment of t he mA and/or kV according to patient size, radiation dose was kept as low as reasonably achievable to obtain optimal diagnostic quality images. DICOM format image data is available electronically for r eview and comparison. FINDINGS: Pulmonary Arteries: No filling defects are seen in the pulmonary arteries out to the subsegmental ve ssels. The left and right pulmonary arteries are normal in diameter. Lung: Passive atelectasis adjacent to the small effusions.. Effusion: Tiny bilateral pleural effusions.. Mediastinum: No evidence of mediastinal or hilar adenopathy. Other: The axilla is unremarkable. CONCLUSION: 1. No pulmonary emboli. 2. Tiny bilateral pleural effusions with associated passive atelectasis. Electronically signed by: Terrell Soni MD 01/05/2018 12:43 AM EDT
[2018-01-05 01:24] LABS: Troponin I 0.94 ng/mL (0.02-0.05)
[2018-01-05 06:03] LABS: Baso % (Auto) 0.3 % (0.0-2.0); Eos # (Auto) 0.1 th/mm3 (0.0-0.4); Eos % (Auto) 0.9 % (0.0-4.0); Hematocrit 36.3 % (39.0-51.0); Hemoglobin 12.6 gm/dL (13.0-17.0); Lymph # (Auto) 1.3 th/mm3 (1.0-4.8); Lymph % (Auto) 10.5 % (9.0-44.0); Mean Corpuscular HGB Conc 34.7 % (32.0-36.0); Mean Corpuscular Hemoglobin 32.4 pg (27.0-34.0); Mean Corpuscular Volume 93.6 fL (80.0-100.0); Mean Platelet Volume 8.4 fL (7.0-11.0); Mono % (Auto) 8.4 % (0.0-8.0); Neut # (Auto) 9.7 th/mm3 (1.8-7.7); Neut % (Auto) 79.9 % (16.0-70.0); Platelet Count 295 th/mm3 (150-450); Red Blood Count 3.88 mil/mm3 (4.50-5.90); White Blood Count 12.1 th/mm3 (4.0-11.0)
[2018-01-05 06:30] LABS: Alanine Aminotransferase 77 U/L (12-78); Albumin 2.2 g/dL (3.4-5.0); Alkaline Phosphatase 270 U/L (45-117); Anion Gap 10 meq/L (5-15); Aspartate Aminotransferase 48 U/L (15-37); Blood Urea Nitrogen 13 mg/dL (7-18); Carbon Dioxide 22.5 meq/L (21.0-32.0); Chloride 106 meq/L (98-107); Glomerular Filtration Rate 83 mL/min (>89); Glucose,Random 83 mg/dL (74-106); Sodium 138 meq/L (136-145)
[2018-01-05 06:33] LABS: Creatine Kinase 98 U/L (39-308); Potassium 4.9 meq/L (3.5-5.1)
[2018-01-05 06:35] LABS: Troponin I 0.73 ng/mL (0.02-0.05)
--- NOTE | 2018-01-05 07:29 | ECHRPT ---
Indication: HEART FAILURE CONCLUSIONS Normal left ventricular size. Wall thickness is normal. The left ventricular systolic function is hyperdynamic with an estimated ejection fraction in the ra nge of 65- 70%. Moderate mitral valve regurgitation. There is mild tricuspid valve regurgitation. The estimated pulmonary arterial pressure is 53.8 mmHg. BP: / HR: Rhythm: Sinus MEASUREMENTS (Male / Female) Normal Values Technical Quality:Fair 2D ECHO LV Diastolic Diameter PLAX 5.3 cm 4.2 - 5.9 / 3.9 - 5.3 cm LV Systolic Diameter PLAX 3.5 cm IVS Diastolic Thickness 0.8 cm 0.6 - 1.0 / 0.6 - 0.9 cm LVPW Diastolic Thickness 0.8 cm 0.6 - 1.0 / 0.6 - 0.9 cm LV Relative Wall Thickness 0.3 RV Internal Dim ED PLAX 3.4 cm LVOT Diameter 2.2 cm Aortic Root Diameter 3.5 cm LA Systolic Diameter LX 3.4 cm 3.0 - 4.0 / 2.7 - 3.8 cm DOPPLER AV Peak Velocity 127.0 cm/s AV Peak Gradient 6.5 mmHg AV Mean Gradient 4.0 mmHg AV Velocity Time Integral 26.4 cm LVOT Peak Velocity 75.9 cm/s LVOT Peak Gradient 2.3 mmHg LVOT Velocity Time Integral 13.9 cm AV Area Cont Eq vti 2.0 cm AV Area Cont Eq pk 2.3 cm Mitral E Point Velocity 58.7 cm/s Mitral A Point Velocity 42.4 cm/s Mitral E to A Ratio 1.4 LV E' Lateral Velocity 11.2 cm/s Mitral E to LV E' Lateral Ratio 5.2 LV E' Septal Velocity 8.2 cm/s Mitral E to LV E' Septal Ratio 7.2 TR Peak Velocity 331.0 cm/s TR Peak Gradient 44.0 mmHg Right Atrial Pressure 10.0 mmHg Pulmonary Artery Systolic Pressu 53.8 mmHg Right Ventricular Systolic Press 53.8 mmHg PV Peak Velocity 63.9 cm/s PV Peak Gradient 1.6 mmHg FINDINGS LEFT VENTRICLE Normal left ventricular size. Wall thickness is normal. The left ventricular systolic function is hyperdynamic with an estimated ejection fraction in the ra nge of 65- 70%. RIGHT VENTRICLE Normal right ventricular size and systolic function. LEFT ATRIUM The left atrial size is normal. RIGHT ATRIUM The right atrial size is normal. ATRIAL SEPTUM No atrial level shunt is demonstrated by color flow Doppler interrogation. AORTA The aortic root and proximal ascending aorta are normal in size on limited imaging. MITRAL VALVE Structurally normal mitral valve. Moderate mitral valve regurgitation. AORTIC VALVE Trileaflet aortic valve. No aortic valve stenosis or regurgitation. TRICUSPID VALVE There is mild tricuspid valve regurgitation. The estimated pulmonary arterial pressure is 53.8 mmHg. PULMONARY VALVE No pulmonary valve regurgitation or stenosis. VESSELS The inferior vena cava is normal in size. PERICARDIUM No pericardial effusion. Joseluis Carroll MD, FACC (Electronically Signed) Final Date:05 January 2018 07:27
--- NOTE | 2018-01-05 08:01 | P.PNCA ---
Subjective Interval history: Breathing much better today and able to lie more flat. Good urine output with diuresis. Physical Exam Vital signs: Vital Signs 01/04/18 08:00 01/04/18 12:00 01/04/18 15:51 Temperature 97.3 F L 100.6 F H 98.0 F Pulse Rate 86 93 H 87 Respiratory Rate 19 20 18 Blood Pressure 125/51 L 149/78 H 136/79 Pulse Oximetry 98 95 97 01/04/18 16:00 01/04/18 19:00 01/04/18 20:00 Temperature 98.0 F 97.7 F Pulse Rate 87 94 H 88 Respiratory Rate 18 18 Blood Pressure 136/79 139/79 Pulse Oximetry 97 97 01/04/18 21:00 01/04/18 22:00 01/04/18 23:00 Temperature Pulse Rate 88 92 H 91 H Respiratory Rate Blood Pressure Pulse Oximetry 01/05/18 00:00 01/05/18 01:00 01/05/18 02:00 Temperature 98.6 F Pulse Rate 88 90 90 Respiratory Rate 18 Blood Pressure 131/87 Pulse Oximetry 94 L 01/05/18 03:00 01/05/18 04:00 01/05/18 05:00 Temperature 98.4 F Pulse Rate 89 92 H 90 Respiratory Rate 16 Blood Pressure 123/71 Pulse Oximetry 95 01/05/18 06:00 Temperature Pulse Rate 91 H Respiratory Rate Blood Pressure Pulse Oximetry Intake & Output 01/04/18 01/05/18 01/05/18 18:59 06:59 18:59 Intake Total 1979 / 1979 480 / 480 Output Total 800 / 800 2400 / 2400 Balance 1180 / 1180 -1920 / -1920 Weight 196 lb 3.382 oz Intake: IV 1500 / 1500 Heparin/D5W 25,000 U/250 mL 25, 50 / 50 000 unit In 250 ml @ Per Protocol IV.CONT TITRATE PRN Rx #:[id number] NS Inj 1,000 ML @ 100 mls/hr IV 1055 / 1055 .CONT .Q10H SUNITHA Rx#:[id number] Zosyn 4.5 GM Premix 4.5 gm In 100 / 100 100 ml @ 200 mls/hr IV.SIG Q6H SUNITHA Rx#:[id number] Thiamine Inj 500 MG In NS Inj 295 / 295 500 ML @ 21 mls/hr IV.SIG Q24H SUNITHA Rx#:[id number] Oral 480 / 480 480 / 480 Output: Urine 800 / 800 2400 / 2400 Other: # Voids 1 Date of Last Bowel Movement 01/04/18 Narrative: GENERAL: Well-developed well-nourished. In no acute distress. NECK: No carotid bruits. No JVD. CARDIOVASCULAR: Regular rate and rhythm. 1/6 murmur appreciated. RESPIRATORY: No accessory muscle use. Clear to auscultation. Breath sounds equal bilaterally. MUSCULOSKELETAL: Small macular nodules on both palmar surfaces of his hands and on his back. Splinter hemorrhage on middle finger left hand. NEUROLOGICAL: Awake and alert. Normal speech. Assessment and Plan - Plan 62-year-old male with a past medical history of gout and hypertension who presented with fever. We were consulted for shortness of breath and pleuritic chest pain. Assessment: Atypical chest pain - CTA showed no PE and tiny bilateral pleural effusion Elevated troponin - associated with fever Elevated LFTs - GI on board Acute CHF - negative fluid balance overnight Heart murmur - stat TTE showed moderate MR, suspect acute Plan: Continue diuresis today with IV Lasix twice daily. Plan for MASSIEL tomorrow Discussed Condition With: Patient seen and examined with Dr. Carroll, RN at bedside, hospitalist
--- NOTE | 2018-01-05 08:48 | P.PNIM ---
Subjective Interval history: breathing much better. says he filled up the urinal x 2 last night immediately after iv lasix. no fever overnight. no cp today. Physical Exam Vital signs: Vital Signs 01/04/18 12:00 01/04/18 15:51 01/04/18 16:00 Temperature 100.6 F H 98.0 F 98.0 F Pulse Rate 93 H 87 87 Respiratory Rate 20 18 18 Blood Pressure 149/78 H 136/79 136/79 Pulse Oximetry 95 97 97 01/04/18 19:00 01/04/18 20:00 01/04/18 21:00 Temperature 97.7 F Pulse Rate 94 H 88 88 Respiratory Rate 18 Blood Pressure 139/79 Pulse Oximetry 97 01/04/18 22:00 01/04/18 23:00 01/05/18 00:00 Temperature 98.6 F Pulse Rate 92 H 91 H 88 Respiratory Rate 18 Blood Pressure 131/87 Pulse Oximetry 94 L 01/05/18 01:00 01/05/18 02:00 01/05/18 03:00 Temperature 98.4 F Pulse Rate 90 90 89 Respiratory Rate 16 Blood Pressure 123/71 Pulse Oximetry 95 01/05/18 04:00 01/05/18 05:00 01/05/18 06:00 Temperature Pulse Rate 92 H 90 91 H Respiratory Rate Blood Pressure Pulse Oximetry Intake & Output 01/04/18 01/05/18 01/05/18 18:59 06:59 18:59 Intake Total 1979 / 1979 480 / 480 Output Total 800 / 800 2400 / 2400 Balance 1180 / 1180 -1920 / -1920 Weight 89 kg Intake: IV 1500 / 1500 Heparin/D5W 25,000 U/250 mL 25, 50 / 50 000 unit In 250 ml @ Per Protocol IV.CONT TITRATE PRN Rx #:[id number] NS Inj 1,000 ML @ 100 mls/hr IV 1055 / 1055 .CONT .Q10H SUNITHA Rx#:[id number] Zosyn 4.5 GM Premix 4.5 gm In 100 / 100 100 ml @ 200 mls/hr IV.SIG Q6H SUNITHA Rx#:[id number] Thiamine Inj 500 MG In NS Inj 295 / 295 500 ML @ 21 mls/hr IV.SIG Q24H SUNITHA Rx#:[id number] Oral 480 / 480 480 / 480 Output: Urine 800 / 800 2400 / 2400 Other: # Voids 1 Date of Last Bowel Movement 01/04/18 nad. no labored breathing. was lying almost flat this AM heart reg. lsb syst murm essentially resolved few cece basilar crackles abd snt ext no edema left dorsal hand lesion. no drainage papular lesions hand/arms and upper back. some ?targetoid w/out progression and some improvement. Results - Labs CBC & Chem 7: 01/05/18 05:29 01/05/18 05:29 Laboratory Results - last 24 hr 01/04/18 01/04/18 01/04/18 10:30 10:30 12:40 WBC RBC Hgb Hct MCV MCH MCHC RDW Plt Count MPV Neut % (Auto) Lymph % (Auto) [place] % (Auto) Eos % (Auto) Baso % (Auto) Neut # (Auto) Lymph # (Auto) [place] # (Auto) Eos # (Auto) Baso # (Auto) WBC Differential Differential Comment PT INR APTT D-Dimer Quant (PE/DVT) Sodium 141 Potassium 3.3 L Chloride 106 Carbon Dioxide 23.2 Anion Gap 12 BUN 10 Creatinine 1.10 Estimated GFR 68 L Random Glucose 107 H Calcium 8.6 Magnesium 2.4 Total Bilirubin AST ALT Alkaline Phosphatase Total Creatine Kinase Cancelled 68 Troponin I 1.48 H* Cancelled 1.43 H* Total Protein Albumin Triglycerides 171 H Cholesterol 128 LDL Cholesterol, Calc 83 HDL Cholesterol 10.8 L Cholesterol/HDL Ratio 11.85 01/04/18 01/04/18 01/04/18 12:40 12:40 12:40 WBC 14.0 H RBC 4.36 L Hgb 14.3 Hct 41.3 MCV 94.8 MCH 32.7 MCHC 34.5 RDW 12.1 Plt Count 334 MPV 7.6 Neut % (Auto) Lymph % (Auto) [place] % (Auto) Eos % (Auto) Baso % (Auto) Neut # (Auto) Lymph # (Auto) [place] # (Auto) Eos # (Auto) Baso # (Auto) WBC Differential Differential Comment PT 10.0 INR 1.0 APTT 28.2 D-Dimer Quant (PE/DVT) 5.45 H Sodium Potassium Chloride Carbon Dioxide Anion Gap BUN Creatinine Estimated GFR Random Glucose Calcium Magnesium Total Bilirubin AST ALT Alkaline Phosphatase Total Creatine Kinase Troponin I Total Protein Albumin Triglycerides Cholesterol LDL Cholesterol, Calc HDL Cholesterol Cholesterol/HDL Ratio 01/05/18 01/05/18 01/05/18 00:13 00:13 05:29 WBC RBC Hgb Hct MCV MCH MCHC RDW Plt Count MPV Neut % (Auto) Lymph % (Auto) [place] % (Auto) Eos % (Auto) Baso % (Auto) Neut # (Auto) Lymph # (Auto) [place] # (Auto) Eos # (Auto) Baso # (Auto) WBC Differential Differential Comment PT INR APTT 28.1 D-Dimer Quant (PE/DVT) Sodium 138 Potassium 4.9 D Chloride 106 Carbon Dioxide 22.5 Anion Gap 10 BUN 13 Creatinine 0.92 Estimated GFR 83 L Random Glucose 83 Calcium 8.0 L Magnesium Total Bilirubin 2.3 H AST 48 H ALT 77 Alkaline Phosphatase 270 H Total Creatine Kinase 37 L 98 Troponin I 0.94 H* 0.73 H* Total Protein 7.0 Albumin 2.2 L Triglycerides Cholesterol LDL Cholesterol, Calc HDL Cholesterol Cholesterol/HDL Ratio 01/05/18 05:29 WBC 12.1 H RBC 3.88 L Hgb 12.6 L Hct 36.3 L MCV 93.6 MCH 32.4 MCHC 34.7 RDW 13.0 Plt Count 295 MPV 8.4 Neut % (Auto) 79.9 H Lymph % (Auto) 10.5 [place] % (Auto) 8.4 H Eos % (Auto) 0.9 Baso % (Auto) 0.3 Neut # (Auto) 9.7 H Lymph # (Auto) 1.3 [place] # (Auto) 1.0 H Eos # (Auto) 0.1 Baso # (Auto) 0.0 WBC Differential . Differential Comment Auto diff final PT INR APTT D-Dimer Quant (PE/DVT) Sodium Potassium Chloride Carbon Dioxide Anion Gap BUN Creatinine Estimated GFR Random Glucose Calcium Magnesium Total Bilirubin AST ALT Alkaline Phosphatase Total Creatine Kinase Troponin I Total Protein Albumin Triglycerides Cholesterol LDL Cholesterol, Calc HDL Cholesterol Cholesterol/HDL Ratio Microbiology 01/01/18 23:25 Blood - Peripheral Aerobic Blood Culture - Preliminary No growth in 3 days 01/01/18 23:25 Blood - Peripheral Anaerobic Blood Culture - Preliminary No growth in 3 days 01/01/18 23:30 Blood - Peripheral Aerobic Blood Culture - Preliminary No growth in 3 days 01/01/18 23:30 Blood - Peripheral Anaerobic Blood Culture - Preliminary No growth in 3 days - Imaging Impressions Chest X-Ray 01/04/18 10:14 CONCLUSION: Slight interval worsening in aeration. Chest CTA 01/05/18 00:00 CONCLUSION: 1. No pulmonary emboli. 2. Tiny bilateral pleural effusions with associated passive atelectasis. Assessment and Plan - Assessment (1) Acute mitral regurgitation Code(s): I34.0 - Nonrheumatic mitral (valve) insufficiency Status: Acute (2) Fever Code(s): R50.9 - Fever, unspecified Status: Acute Plan: 1. acute mitral regurgitation and valvular acute chf. ?etiology. not felt to be ACS. need to exclude endocarditis. no obvious vegetation on bedside stat echo on 01/04 just mod MR EF nml. on physical exam the mitral valve murmer has resolved today. discussed with Dr Carroll. MASSIEL tomorrow. cont iv lasix and monitor bmp. lft improving ..?hepatic congestion component from acute MR/chf 2. fevers. pt has left dorsal hand wound x 1month. s/p 10d bactrim just prior to admit and getting zosyn on admission. blood cx's have been negative. stop abx and monitor fever curve. repeat blood cx off abx if needed. ask Hand surgery to evaluate the left hand wound as pt reports that it's getting worse. 3. elevated LFT's improving after iv lasix..?hepatic congestion GI following. serologies pending. ?medication related. mrcp pending. 4. rash. hand/arms/back. stable. ?drug related. infection related. r/o endocarditis. 5. uti on admission. cloudy urine. ngtd on cx. 6. elevated troponin. might be related to acute wall strain from acute MR/chf. (3) Elevated LFTs Code(s): R94.5 - Abnormal results of liver function studies Status: Acute
--- NOTE | 2018-01-05 12:43 | ECG ---
Date Performed: 01/04/2018 Time Performed: 10:34:25 PTAGE: 62 years EKG: Sinus rhythm NORMAL ECG NO PREVIOUS TRACING DOCTOR: Moshe Randolph Interpretating Date/Time 01/05/2018 12:37:24
--- NOTE | 2018-01-05 13:27 | ECG ---
Date Performed: 01/04/2018 Time Performed: 12:30:54 PTAGE: 62 years EKG: Sinus rhythm NORMAL ECG PREVIOUS TRACING : 01/04/2018 10.34 Since the previous tracing, no significant change noted DOCTOR: Moshe Randolph Interpretating Date/Time 01/05/2018 13:25:35
--- NOTE | 2018-01-05 13:27 | ECG ---
Date Performed: 01/05/2018 Time Performed: 03:38:32 PTAGE: 62 years EKG: Sinus rhythm Poor R wave progression - probable normal variant Low QRS voltages in limb leads Borderline ECG PREVIOUS TRACING : 01/04/2018 12.30 Since the previous tracing, no significant change noted DOCTOR: Moshe Randolph Interpretating Date/Time 01/05/2018 13:25:26
[2018-01-05] MEDS: Nystatin Liq 500,000 UNIT/5 ML UDC SWISH-SWAL SCH ×2 (17:36→21:05)
[2018-01-06 06:20] LABS: Hemoglobin 13.1 gm/dL (13.0-17.0); Mean Corpuscular HGB Conc 34.5 % (32.0-36.0); Mean Corpuscular Hemoglobin 32.3 pg (27.0-34.0); Mean Corpuscular Volume 93.7 fL (80.0-100.0); Mean Platelet Volume 7.8 fL (7.0-11.0); Platelet Count 368 th/mm3 (150-450); Red Blood Count 4.05 mil/mm3 (4.50-5.90); Red Cell Distribution Width 12.9 % (11.6-17.2); White Blood Count 9.1 th/mm3 (4.0-11.0)
[2018-01-06 07:38] LABS: Albumin 2.3 g/dL (3.4-5.0); Calcium 8.3 mg/dL (8.5-10.1); Carbon Dioxide 28.2 meq/L (21.0-32.0); Total Protein 6.9 g/dL (6.4-8.2)
--- NOTE | 2018-01-06 08:04 | P.PNIM ---
Subjective Interval history: c/o gout pain left great toe. breathing very well. on room air rash improved. Physical Exam Vital signs: Vital Signs 01/05/18 09:00 01/05/18 10:00 01/05/18 11:00 Temperature 98.2 F Pulse Rate 98 H 100 H 96 H Respiratory Rate 16 Blood Pressure 144/88 H Pulse Oximetry 95 01/05/18 12:00 01/05/18 13:00 01/05/18 14:00 Temperature Pulse Rate 99 H 94 H 92 H Respiratory Rate Blood Pressure Pulse Oximetry 01/05/18 15:00 01/05/18 16:00 01/05/18 17:00 Temperature 97.8 F Pulse Rate 94 H 94 H 96 H Respiratory Rate 16 Blood Pressure 139/86 Pulse Oximetry 95 01/05/18 18:00 01/05/18 19:00 01/05/18 20:00 Temperature 98.8 F Pulse Rate 99 H 100 H 93 H Respiratory Rate 16 Blood Pressure 137/83 Pulse Oximetry 97 01/05/18 21:00 01/05/18 22:00 01/05/18 23:00 Temperature 98.5 F Pulse Rate 92 H 82 82 Respiratory Rate 16 Blood Pressure 142/79 H Pulse Oximetry 96 01/06/18 00:00 01/06/18 01:00 01/06/18 02:00 Temperature Pulse Rate 85 73 76 Respiratory Rate Blood Pressure Pulse Oximetry 01/06/18 02:59 01/06/18 03:00 01/06/18 04:00 Temperature 99.7 F H Pulse Rate 81 82 80 Respiratory Rate 16 Blood Pressure 133/79 Pulse Oximetry 96 01/06/18 05:00 01/06/18 06:00 Temperature Pulse Rate 82 75 Respiratory Rate Blood Pressure Pulse Oximetry Intake & Output 01/05/18 01/06/18 01/06/18 18:59 06:59 18:59 Intake Total 1720 / 1720 480 / 480 Output Total 2675 / 2675 1250 / 1250 Balance -955 / -955 -770 / -770 Weight 87.8 kg Intake: Oral 1720 / 1720 480 / 480 Output: Urine 2675 / 2675 1250 / 1250 nad ambulating heart reg lung cta abds /nt ext left hand bandaged. Results - Labs CBC & Chem 7: 01/06/18 05:40 01/06/18 05:40 Laboratory Results - last 24 hr 01/04/18 01/06/18 01/06/18 06:30 05:40 05:40 WBC 9.1 RBC 4.05 L Hgb 13.1 Hct 38.0 L MCV 93.7 MCH 32.3 MCHC 34.5 RDW 12.9 Plt Count 368 MPV 7.8 Sodium 141 Potassium 3.0 L D Chloride 103 Carbon Dioxide 28.2 Anion Gap 10 BUN 19 H Creatinine 0.98 Estimated GFR 78 L Random Glucose 106 Calcium 8.3 L Total Bilirubin 1.3 H Direct Bilirubin 0.7 H Indirect Bilirubin 0.6 AST 41 H ALT 70 Alkaline Phosphatase 264 H Total Protein 6.9 Albumin 2.3 L [id number] 446 H Microbiology 01/01/18 23:25 Blood - Peripheral Aerobic Blood Culture - Preliminary No growth in 4 days 01/01/18 23:25 Blood - Peripheral Anaerobic Blood Culture - Preliminary No growth in 4 days 01/01/18 23:30 Blood - Peripheral Aerobic Blood Culture - Preliminary No growth in 4 days 01/01/18 23:30 Blood - Peripheral Anaerobic Blood Culture - Preliminary No growth in 4 days Assessment and Plan - Assessment (1) Acute mitral regurgitation Code(s): I34.0 - Nonrheumatic mitral (valve) insufficiency Status: Acute (2) Fever Code(s): R50.9 - Fever, unspecified Status: Acute Plan: 1. acute mitral regurgitation and valvular acute chf. ?etiology. not felt to be ACS. need to exclude endocarditis. no obvious vegetation on bedside stat echo on 01/04 just mod MR EF nml. on physical exam the mitral valve murmer has resolved discussed with Dr Carroll. MASSIEL today pt appears diuresed. hold further lasix doses this AM..replace kcl and rx the gout flare ...reassess later for need to resume diuretic. lft improving ..?hepatic congestion component from acute MR/chf. his mrcp was pending. 2. fevers. pt has left dorsal hand wound x 1month. s/p 10d bactrim just prior to admit and getting zosyn on admission. blood cx's have been negative. stopped abx and monitor fever curve. repeat blood cx off abx if needed. askedHand surgery to evaluate the left hand wound as pt reports that it's getting worse... the lesion was opened and I'm told sent for analysis 3. elevated LFT's improving after iv lasix..?hepatic congestion GI following. serologies pending. ?medication related. mrcp pending. 4. rash. hand/arms/back. stable. ?drug related. infection related. r/o endocarditis. seems to be improved 5. uti on admission. cloudy urine. ngtd on cx. 6. elevated troponin. might be related to acute wall strain from acute MR/chf. 7. gout flare. left MCP joint. due to diuresis. colchicine dose. (3) Elevated LFTs Code(s): R94.5 - Abnormal results of liver function studies Status: Acute
--- NOTE | 2018-01-06 08:16 | P.PNCA ---
Subjective Interval history: -1700 fluid balance overnight. Patient breathing much better today. He denies any orthopnea. He denies any chest pain. He does complain of some gout in his toe. Physical Exam Vital signs: Vital Signs 01/05/18 09:00 01/05/18 10:00 01/05/18 11:00 Temperature 98.2 F Pulse Rate 98 H 100 H 96 H Respiratory Rate 16 Blood Pressure 144/88 H Pulse Oximetry 95 01/05/18 12:00 01/05/18 13:00 01/05/18 14:00 Temperature Pulse Rate 99 H 94 H 92 H Respiratory Rate Blood Pressure Pulse Oximetry 01/05/18 15:00 01/05/18 16:00 01/05/18 17:00 Temperature 97.8 F Pulse Rate 94 H 94 H 96 H Respiratory Rate 16 Blood Pressure 139/86 Pulse Oximetry 95 01/05/18 18:00 01/05/18 19:00 01/05/18 20:00 Temperature 98.8 F Pulse Rate 99 H 100 H 93 H Respiratory Rate 16 Blood Pressure 137/83 Pulse Oximetry 97 01/05/18 21:00 01/05/18 22:00 01/05/18 23:00 Temperature 98.5 F Pulse Rate 92 H 82 82 Respiratory Rate 16 Blood Pressure 142/79 H Pulse Oximetry 96 01/06/18 00:00 01/06/18 01:00 01/06/18 02:00 Temperature Pulse Rate 85 73 76 Respiratory Rate Blood Pressure Pulse Oximetry 01/06/18 02:59 01/06/18 03:00 01/06/18 04:00 Temperature 99.7 F H Pulse Rate 81 82 80 Respiratory Rate 16 Blood Pressure 133/79 Pulse Oximetry 96 01/06/18 05:00 01/06/18 06:00 Temperature Pulse Rate 82 75 Respiratory Rate Blood Pressure Pulse Oximetry Intake & Output 01/05/18 01/06/18 01/06/18 18:59 06:59 18:59 Intake Total 1720 / 1720 480 / 480 Output Total 2675 / 2675 1250 / 1250 Balance -955 / -955 -770 / -770 Weight 193 lb 9.054 oz Intake: Oral 1720 / 1720 480 / 480 Output: Urine 2675 / 2675 1250 / 1250 Narrative: GENERAL: Well-developed well-nourished. In no acute distress. NECK: No carotid bruits. No JVD. CARDIOVASCULAR: Regular rate and rhythm. 1/6 murmur appreciated. RESPIRATORY: No accessory muscle use. Clear to auscultation. Breath sounds equal bilaterally. MUSCULOSKELETAL: Small macular nodules on both palmar surfaces of his hands and on his back. Splinter hemorrhage on middle finger left hand. NEUROLOGICAL: Awake and alert. Normal speech. Assessment and Plan - Plan 62-year-old male with a past medical history of gout and hypertension who presented with fever. We were consulted for shortness of breath and pleuritic chest pain. Assessment: Atypical chest pain - CTA showed no PE and tiny bilateral pleural effusion Elevated troponin - associated with fever Elevated LFTs - GI on board Acute CHF - improved with diuresis Heart murmur - stat TTE showed moderate MR, suspect acute Plan: N.p.o. for MASSIEL today, further disposition pending result Discussed Condition With: Patient with family at bedside, Dr. Carroll - Attending Attestation MASSIEL - normal EF. mild-mod MR. no veg. no need for surgery. medical therapy. -1.7 L SOB improved. transition to oral diuretic therapy ok for DC from cardio standpoint
[2018-01-06] MEDS ORDERED: Chlorhexidine Gluconate 2% 1 Pack (2 Cloths) TOPICAL SCH (09:30)
[2018-01-06] MEDS ORDERED: Metoprolol Tartrate 25 MG Tablet PO SCH (09:30)
[2018-01-06] MEDS ORDERED: Sodium Chlor 0.9% Inj 500 ML IV.SIG SCH (10:00)
--- NOTE | 2018-01-06 11:18 | ECHRPT ---
Indication: HEART FAILURE CONCLUSIONS Normal left ventricular size. Wall thickness is normal. The left ventricular systolic function is normal with an estimated ejection fraction in the range of 60-65%. The left atrial size is upper limits of normal. Mild thickening of the mitral valve leaflets. [id number] mitral valve regurgitation. No mitral valve stenosis. No vegetation. Structurally normal tricuspid valve. There is trace tricuspid valve regurgitation. Pulmonary arteria l systolic pressure could not be estimated due to an insufficient tricuspid valve regurgitation doppler jet for measurement. No vegetation. BP: / HR: Rhythm: Technical Quality: Medications Complications Proc. Components FINDINGS LEFT VENTRICLE Normal left ventricular size. Wall thickness is normal. The left ventricular systolic function is normal with an estimated ejection fraction in the range of 60-65%. RIGHT VENTRICLE Normal right ventricular size and systolic function. LEFT ATRIUM The left atrial size is upper limits of normal. RIGHT ATRIUM The right atrial size is normal. ATRIAL APPENDAGES Normal left atrial appendage size with no evidence of thrombus formation. ATRIAL SEPTUM Normal atrial septal thickness without atrial level shunting by limited color doppler interrogation. AORTA The aortic root and proximal ascending aorta are normal in size on limited imaging. MITRAL VALVE Mild thickening of the mitral valve leaflets. [id number] mitral valve regurgitation. No mitral valve stenosis. No vegetation. AORTIC VALVE Trileaflet aortic valve. No aortic valve stenosis or regurgitation. TRICUSPID VALVE Structurally normal tricuspid valve. There is trace tricuspid valve regurgitation. Pulmonary arteria l systolic pressure could not be estimated due to an insufficient tricuspid valve regurgitation doppler jet for measurement. No vegetation. VESSELS The inferior vena cava is normal in size. PULMONARY VALVE The pulmonary valve is not well visualized. PERICADIUM No pericardial effusion. Joseluis Carroll MD, FACC (Electronically Signed) Final Date:06 January 2018 11:17
[2018-01-06] MEDS ORDERED: Lidocaine 2% 100 MG/5 ML Syringe ONE (11:20)
[2018-01-06] MEDS ORDERED: Atropine Inj 1 MG/10 ML Syringe ONE (11:20)
[2018-01-06] MEDS ORDERED: Lidocaine PF 1% Inj 5 ML Syringe INFILTRATN ONE (12:00)
[2018-01-06] MEDS ORDERED: Phenylephrine/NS 1000 MCG/10ML Syringe IV.PUSH ONE (12:00)
[2018-01-06] MEDS: Nystatin Liq 500,000 UNIT/5 ML UDC SWISH-SWAL SCH ×4 (13:25→22:26)
--- NOTE | 2018-01-06 13:38 | MR ---
EXAM DATE: 01/06/2018 11:53 AM EDT AGE/SEX: 62 years / Male INDICATIONS: Jaundice. CLINICAL DATA: This is the patient's initial encounter. Patient reports that signs and symptoms have been present for 1 day and indicates a pain score of 0/10. MEDICAL/SURGICAL HISTORY: Hypertension. None. COMPARISON: [facility], US ABDOMEN LIVER, 01/01/2018. . TECHNIQUE: Multiplanar, multisequence images of the abdomen were obtained without contrast including dedicated cholangiographic images. FINDINGS: Common bile duct measures 2 to 3 mm. There is no evidence for intrahepatic ductal dilatations. The pa ncreatic duct is unremarkable. The liver does not appear to be fatty. The rest of the examination is basically unremarkable. CONCLUSION: 1. Unremarkable study. Electronically signed by: Oc Castillo MD 01/06/2018 1:37 PM EDT
[2018-01-06 16:35] LABS: Smooth Muscle Total Auto Abs Negative (Negative)
[2018-01-06 23:54] LABS: DS DNA Ab (Crithidia) NEGATIVE (NEGATIVE)
[2018-01-07 01:34] VITALS: RESP 18
[2018-01-07] MEDS: Nystatin Liq 500,000 UNIT/5 ML UDC SWISH-SWAL SCH (08:16)
[2018-01-07 08:22] VITALS: BP 137/83; TEMP 99; O2SAT 97
[2018-01-07] MEDS ORDERED: Furosemide 40 MG Tablet PO SCH (09:00)
--- NOTE | 2018-01-07 09:23 | P.PNIM ---
Subjective Interval history: no f/c no sob great toe better but warp scouring vat tender at mcp jnt. rash improving. no itch. Physical Exam Vital signs: Vital Signs 01/06/18 10:45 01/06/18 11:00 01/06/18 12:00 Temperature 98.3 F Pulse Rate 76 78 78 Respiratory Rate 16 Blood Pressure 147/90 H Pulse Oximetry 96 01/06/18 13:00 01/06/18 14:00 01/06/18 15:00 Temperature 97.6 F Pulse Rate 78 78 89 Respiratory Rate 16 Blood Pressure 145/93 H Pulse Oximetry 98 01/06/18 16:00 01/06/18 17:00 01/06/18 18:00 Temperature Pulse Rate 78 76 82 Respiratory Rate Blood Pressure Pulse Oximetry 01/06/18 19:00 01/06/18 20:00 01/06/18 21:00 Temperature 98.7 F Pulse Rate 80 75 82 Respiratory Rate 18 Blood Pressure 118/72 Pulse Oximetry 01/06/18 22:00 01/06/18 23:00 01/07/18 00:00 Temperature Pulse Rate 74 68 74 Respiratory Rate Blood Pressure Pulse Oximetry 01/07/18 01:00 01/07/18 02:00 01/07/18 03:00 Temperature 98.7 F Pulse Rate 66 71 74 Respiratory Rate 18 Blood Pressure 129/74 Pulse Oximetry 01/07/18 04:00 01/07/18 05:00 01/07/18 06:00 Temperature Pulse Rate 72 72 71 Respiratory Rate Blood Pressure Pulse Oximetry 01/07/18 08:20 Temperature 99 F Pulse Rate 82 Respiratory Rate 18 Blood Pressure 137/83 Pulse Oximetry 97 Intake & Output 01/06/18 01/07/18 01/07/18 18:59 06:59 18:59 Intake Total 1120 / 1120 480 / 480 Output Total 1999 900 / 900 Balance -880 / -880 -420 / -420 Weight 87.7 kg Intake: Oral 1120 / 1120 480 / 480 Output: Urine 1999 900 / 900 Other: Date of Last Bowel Movement 01/06/18 01/07/18 # Bowel Movements 1 heart reg lung cta abd s/nt ext left dorsal hand bandaged ext left mcp joint mild redness/tender. papular rash over knuckles/hands/back much improved. no new lesions. Results - Labs CBC & Chem 7: 08/24/18 05:40 01/06/18 05:40 Laboratory Results - last 24 hr 01/03/18 01/03/18 06:25 06:30 Rheumatoid Factor Less than 14 Anti-ds DNA Titer (Crith) ND Anti-ds DNA (Crithidia) Negative Anti-Smooth Muscle Ab Negative Tiss Transglutamin IgG Less than 1.2 Tiss Transglutamin IgA Less than 1.2 HCV RNA (PCR) IUs/ml Less than 15 HCV RNA PCR log IUs/ml Less than 1.18 Microbiology 01/01/18 23:25 Blood - Peripheral Aerobic Blood Culture - Final No growth in 5 days 01/01/18 23:25 Blood - Peripheral Anaerobic Blood Culture - Final No growth in 5 days 01/01/18 23:30 Blood - Peripheral Aerobic Blood Culture - Final No growth in 5 days 01/01/18 23:30 Blood - Peripheral Anaerobic Blood Culture - Final No growth in 5 days - Imaging Impressions Cholangiopancreatography MRI 01/06/18 00:00 CONCLUSION: 1. Unremarkable study. Assessment and Plan - Assessment (1) Acute mitral regurgitation Code(s): I34.0 - Nonrheumatic mitral (valve) insufficiency Status: Acute (2) Fever Code(s): R50.9 - Fever, unspecified Status: Acute Plan: 1. acute mitral regurgitation and valvular acute chf. ?etiology. not felt to be ACS. need to exclude endocarditis. no obvious vegetation on bedside stat echo on 01/04 just mod MR EF nml. on physical exam the mitral valve murmer has resolved discussed with Dr Carroll. MASSIEL 01/06. mild/mod mvr. no vegetation pt appears diuresed. cardiology recc. po lasix on dc lft improving ..?hepatic congestion component from acute MR/chf. his mrcp was negative. labs today pending. plan for dc home if cmp improved. close pcp f/u for recheck. 2. fevers. pt has left dorsal hand wound x 1month. s/p 10d bactrim just prior to admit and getting zosyn on admission. blood cx's have been negative. stopped abx and monitor fever curve. repeat blood cx off abx if needed. askedHand surgery to evaluate the left hand wound as pt reports that it's getting worse... the lesion was opened. I spoke with Hand surgeon. no infection. just local wound care. 3. elevated LFT's improving after iv lasix..?hepatic congestion from transient chf from mvr and volume overload from ivf. GI following. serologies neg so far ?medication related. mrcp negative 4. rash. hand/arms/back. stable. ?drug related. infection related. ?viral. no endocarditis. improving after cessation of abx. 5. uti on admission. cloudy urine. ngtd on cx. denies any ongoing uti sx's6. elevated troponin. might be related to acute wall strain from acute MR/chf. 7. gout flare. left MCP joint. due to diuresis. colchicine dose. improved but give one more dose. (3) Elevated LFTs Code(s): R94.5 - Abnormal results of liver function studies Status: Acute
[2018-01-07 10:19] LABS: Alanine Aminotransferase 107 U/L (12-78); Alkaline Phosphatase 268 U/L (45-117); Anion Gap 12 meq/L (5-15); Aspartate Aminotransferase 87 U/L (15-37); Blood Urea Nitrogen 16 mg/dL (7-18); Calcium 8.8 mg/dL (8.5-10.1); Carbon Dioxide 22.4 meq/L (21.0-32.0); Chloride 107 meq/L (98-107); Glomerular Filtration Rate 80 mL/min (>89); Glucose,Random 98 mg/dL (74-106); Potassium 3.6 meq/L (3.5-5.1); Sodium 141 meq/L (136-145); Total Protein 7.7 g/dL (6.4-8.2)
[2018-01-07 10:47] LABS: Albumin 2.6 g/dL (3.4-5.0)
[2018-01-07 20:23] VITALS: PULSE 70
[2018-01-08 13:52] LABS: Ceruloplasmin 38 mg/dL (18-36)
--- NOTE | 2018-01-11 13:27 | P.DS ---
Date of admission: 01/01/18 20:08 Primary care physician: UNKNOWN Anticipated date of discharge: 01/07/18 Brief History from admission: 62 y/o male presents to [place] ER with complaints of fevers up to 103 for 3 days. He states he had been poorly for the last week. Tuesday he started developing fevers of 103. He took several ibuprofen and aleve over the next several days with no improvment in his fevers. His only other complaint is burning on urination.No penile discharge. He has also had a frontal headache. No blurry vision, no neck pain. Today he has some nasal congestion, no sore throat. Aprox 2 weeks ago he cut his left hand against a fence and was placed on bactrim which he finished 2 days ago. No abdominal pain or diarrhea. He feels that he hasnt moved his bowels as regularly since the bactrim. No skin rash. In [place] his white count was 13.7 and his urine had bacteria and was postive for nitrites. His lfts were slightly elevated (ast 191, alt 177, alk phos 156) and ruq ultrasound was done that was negative for any acute process. DS: Diagnosis - Discharge Diagnosis (1) Acute mitral regurgitation Status: Acute (2) Fever Status: Acute (3) Elevated LFTs Status: Acute DS: Medications - Discharge Medications Prescriptions: furosemide [Lasix] 20 mg PO DAILY 30 Days #30 tab nystatin 10 ml SWISH-SWAL QID 7 Days #280 ml potassium chloride 10 meq PO DAILY 30 Days #30 cap DS: Summary Hospital Course: - Assessment (1) Acute mitral regurgitation Code(s): I34.0 - Nonrheumatic mitral (valve) insufficiency Status: Acute (2) Fever Code(s): R50.9 - Fever, unspecified Status: Acute Plan: 1. acute mitral regurgitation and valvular acute chf. ?etiology. not felt to be ACS. need to exclude endocarditis. no obvious vegetation on bedside stat echo on 01/04 just mod MR EF nml. on physical exam the mitral valve murmer has resolved discussed with Dr Carroll. BETH 01/06. mild/mod mvr. no vegetation pt appears diuresed. cardiology recc. po lasix on dc lft improving ..?hepatic congestion component from acute MR/chf. his mrcp was negative. labs today pending. plan for dc home if cmp improved. close pcp f/u for recheck. ADDENDUM: on day of dc ...lft returned slightly higher than day before. no fever. pt eager for dc. We asked him to f/u skylar with pcp and GI and have lft repeated. if fevers return he should have blood cx's before abx the next time to assure no occult bacteremia. 2. fevers. pt has left dorsal hand wound x 1month. s/p 10d bactrim just prior to admit and getting zosyn on admission. blood cx's have been negative. stopped abx and monitor fever curve. repeat blood cx off abx if needed. askedHand surgery to evaluate the left hand wound as pt reports that it's getting worse... the lesion was opened. I spoke with Hand surgeon. no infection. just local wound care. 3. elevated LFT's improving after iv lasix..?hepatic congestion from transient chf from mvr and volume overload from ivf. GI following. serologies neg so far ?medication related. mrcp negative 4. rash. hand/arms/back. stable. ?drug related. infection related. ?viral. no endocarditis. improving after cessation of abx. 5. uti on admission. cloudy urine. ngtd on cx. denies any ongoing uti sx's6. elevated troponin. might be related to acute wall strain from acute MR/chf. 7. gout flare. left MCP joint. due to diuresis. colchicine dose. improved but give one more dose. (3) Elevated LFTs Code(s): R94.5 - Abnormal results of liver function studies Status: Acute - Time Spent with Patient Total time spent providing and/or coordinating discharge services: Greater than 30 minutes - Quality: VTE Deep Vein Thrombosis/Pulmonary Embolism Present on Admission: No Exam Vital signs: heart reg lung ctda abd s/nt ext no edema Results Procedures completed during hospitalization: echo beth cta chest mrcp abdomen - Impressions ITS Impressions Hand X-Ray 01/03/18 00:00 CONCLUSION: Mild posterior hand soft tissue swelling. No radiopaque foreign body is identified and no acute osseous abnormality is seen. Chest X-Ray 01/04/18 10:14 CONCLUSION: Slight interval worsening in aeration. Chest CTA 01/05/18 00:00 CONCLUSION: 1. No pulmonary emboli. 2. Tiny bilateral pleural effusions with associated passive atelectasis. Cholangiopancreatography MRI 01/06/18 00:00 CONCLUSION: 1. Unremarkable study. Discharge Plan - Discharge Disposition Patient Disposition: 01 Discharge Home - Discharge Condition Condition: Stable - Discharge Order Discharge Orders: Discharge Order (Routine); Ordered 01/07/18 Ordered By: Kenny Baumann Cardiology Clear for Discharge (Routine); Ordered 01/06/18 Ordered By: Joseluis Carroll - Discharge Details Anticipated Discharge Date: 01/07/18 - Physicians Team Primary Care Provider: UNKNOWN, Attending Provider: Kenny Baumann Other Providers: Ramsey Renee MD ; Joseluis Carroll MD ; Chris Dillon MD - Rxs /Orders / Referrals /Forms Prescriptions: New furosemide [Lasix] 20 mg Tablet 20 mg PO DAILY 30 Days Qty: 30 RF: 0 nystatin 100,000 unit/mL Suspension 10 ml SWISH-SWAL QID 7 Days Qty: 280 RF: 0 potassium chloride 10 mEq Capsule, Extended Release 10 meq PO DAILY 30 Days Qty: 30 RF: 0 Ambulatory Orders / Order Sets / DME: Comprehensive Metabolic Panel (Routine) Timeframe: 20180111 Location: Determined by Patient Ordered By: Kenny Baumann Referrals: Denis Collins MD [Physician] - See Instructions (f/u in next 2 weeks for recheck of your liver function.) UNKNOWN, [Primary Care Provider] - See Instructions (f/u pcp Dr Jackman in 1 week. notify him with any recurrent fevers) - Discharge Instructions Patient Printed Instructions: Urinary Tract Infection in Men (DC), Gout (DC)
== END 2018-01-07 13:32 | disposition home or self-care (01) ==
LOC: PHEDDLT 14:22 → PH3 20:08 → HCIS 01-04 14:43
PROVIDERS: ADMIT Hospitalist; ATTEND Hospitalist